=== PATIENT | female | born 1990 | race Caucasian/White ===

== ENCOUNTER 2017-01-13 16:54 | Inpatient (IN) | payer BC ==
[2017-01-13] MEDS ORDERED: Methylergonovine 0.2 MG/1 ML Amp IM PRN (17:16)
[2017-01-13] MEDS ORDERED: Lidocaine 1% 50 ML MDV INJECT PRN (17:16)
[2017-01-13] MEDS ORDERED: Water For Irrigation,Sterile 1,000 ML Container IRR PRN (17:16)
[2017-01-13] MEDS ORDERED: Sodium Chloride 0.9% 2.5 ML Syringe FLUSH PRN (17:16)
[2017-01-13] MEDS ORDERED: Nalbuphine 10 MG/1 ML Vial IVPUSH PRN (17:16)
[2017-01-13] MEDS ORDERED: Carboprost Tromethamine 250 MCG/1 ML Amp IM PRN (17:16)
[2017-01-13] MEDS ORDERED: Misoprostol 200 MCG Tab PO PRN (17:16)
[2017-01-13] MEDS ORDERED: Terbutaline 1 MG/ML SDV SUBCUT PRN (17:21)
[2017-01-13] MEDS ORDERED: Oxytocin/Lactated Ringers 30 UNIT/500 ML BAG IV SCH (17:30)
[2017-01-13] MEDS: Lactated Ringers 1,000 ML IV SCH ×2 (17:45→21:25)
[2017-01-13] MEDS ORDERED: Misoprostol 25 MCG (1/4 of 100 MCG) Tab VAG SCH (18:00)
[2017-01-13] MEDS: Butorphanol 1 MG/ML SDV IVPUSH PRN (22:07)
[2017-01-13] MEDS: Sodium Chloride 0.9% 10 ML Syringe FLUSH PRN (22:10)
[2017-01-14] MEDS ORDERED: Misoprostol 25 MCG (1/4 of 100 MCG) Tab VAG PRN
[2017-01-14] MEDS: Butorphanol 1 MG/ML SDV IVPUSH PRN ×2 (00:06→01:24)
[2017-01-14] MEDS: Sodium Chloride 0.9% 10 ML Syringe FLUSH PRN ×2 (00:08→01:26)
[2017-01-14] MEDS: Lactated Ringers 1,000 ML IV SCH ×2 (01:51→02:46)
--- NOTE | 2017-01-14 01:59 | PCM.PREANE ---
Preanesthetic Assessment - Anesthesia/Transfusion/Family Hx Anesthesia History: Prior Anesthesia Without Reaction Transfusion History: No Prior Transfusion(s) - Review of Systems General: No Symptoms Pulmonary: No Symptoms Cardiovascular: No Symptoms Gastrointestinal: No Symptoms Neurological: No Symptoms Other: Reports: None - Physical Assessment Height: 5 ft 5 in Weight: 72.575 kg ASA Class: 2 Mental Status: Alert & Oriented x3 Airway Class: Mallampati = 2 Dentition: Reports: Normal Dentition Thyro-Mental Finger Breadths: 3 Mouth Opening Finger Breadths: 3 ROM/Head Extension: Full Lungs: Clear to Auscultation, Normal Respiratory Effort Cardiovascular: Regular Rate, Regular Rhythm - Lab Values: Laboratory Last Values WBC 13.37 K/uL (4.0-11.0) H 01/13/17 17:41 RBC 3.86 M/uL (4.30-5.90) L 01/13/17 17:41 Hgb 12.4 g/dL (12.0-16.0) 01/13/17 17:41 Hct 36.4 % (36.0-46.0) 01/13/17 17:41 MCV 94.3 fL (80.0-98.0) 01/13/17 17:41 MCH 32.1 pg (27.0-32.0) H 01/13/17 17:41 MCHC 34.1 g/dL (31.0-37.0) 01/13/17 17:41 RDW Std Deviation 48.8 fl (28.0-62.0) 01/13/17 17:41 RDW Coeff of Kellee 14 % (11.0-15.0) 01/13/17 17:41 Plt Count 193 K/uL (150-400) 01/13/17 17:41 MPV 11.00 fL (7.40-12.00) 01/13/17 17:41 Nucleated RBC % 0.0 /100WBC 01/13/17 17:41 Nucleated RBCs # 0 K/uL 01/13/17 17:41 Blood Type O POSITIVE 01/13/17 17:41 Antibody Screen NEGATIVE 01/13/17 17:41 - Allergies Allergies/Adverse Reactions: Allergies Allergy/AdvReac Type Severity Reaction Status Date / Time No Known Allergies Allergy Verified 03/07/15 11:55 - Acknowledgements Anesthesia Type Planned: Epidural Pt an Appropriate Candidate for the Planned Anesthesia: Yes Alternatives and Risks of Anesthesia Discussed w Pt/Guardian: Yes Pt/Guardian Understands and Agrees with Anesthesia Plan: Yes PreAnesthesia Questionnaire HEENT History: Reports: None Cardiovascular History: Reports: None Respiratory History: Reports: None Gastrointestinal History: Reports: GERD Genitourinary History: Reports: None [employer]MENT [employer] History: Reports: : 1 Para: 0 LMP (Approximate): Musculoskeletal History: Reports: None Neurological History: Reports: None Psychiatric History: Reports: Anxiety Endocrine/Metabolic History: Reports: None Hematologic History: Reports: None Immunologic History: Reports: None Oncologic (Cancer) History: Reports: None Dermatologic History: Reports: None - Infectious Disease History Infectious Disease History: Reports: None - Past Surgical History HEENT Surgical History: Reports: Other (See Below) Other HEENT Surgeries/Procedures: rods in jaw bilateral, removal on left side. - SUBSTANCE USE Smoking Status *Q: Never Smoker Tobacco Use Within Last Twelve Months: No Second Hand Smoke Exposure: No Recreational Drug Use History: No - HOME MEDS Home Medications: Home Meds ALPRAZolam [Xanax] 0.5 mg PO 03/07/15 [History] - CURRENT (IN HOUSE) MEDS Current Meds: Current Medications Butorphanol Tartrate (Stadol) 1 mg IVPUSH Q1H PRN PRN Reason: Pain Last Admin: 01/14/17 01:24 Dose: 1 mg Carboprost Tromethamine (Hemabate Ds) 250 mcg IM ASDIRECTED PRN PRN Reason: Post Hemorrhage Lactated Ringer's (Ringers, Lactated) 1,000 mls @ 150 mls/hr IV ASDIRECTED LAZARO Last Admin: 01/14/17 01:51 Dose: 150 mls/hr Oxytocin/Lactated Ringer's (Pitocin In Lr 30 Units/500 Ml) 30 unit in 500 mls @ 2 mls/hr IV TITRATE LAZARO; 2 MUNITS/MIN PRN Reason: Protocol Lidocaine HCl (Xylocaine 1%) 50 ml INJECT .ONCE PRN PRN Reason: Laceration repair Methylergonovine Maleate (Methergine) 0.2 mg IM ASDIRECTED PRN PRN Reason: Post Hemorrhage Misoprostol (Cytotec) 200 mcg PO .ONCE PRN PRN Reason: Post Hemorrhage Misoprostol (Cytotec) 25 mcg VAG .ONCE LAZARO Last Admin: 01/13/17 18:00 Dose: 25 mcg Misoprostol (Cytotec) 25 mcg VAG Q6H PRN PRN Reason: Cervical Ripening Stop: 01/15/17 18:01 Sodium Chloride (Saline Flush) 10 ml FLUSH ASDIRECTED PRN PRN Reason: Keep Vein Open Last Admin: 01/14/17 01:26 Dose: 10 ml Sodium Chloride (Saline Flush) 2.5 ml FLUSH ASDIRECTED PRN PRN Reason: Keep Vein Open Sterile Water (Sterile Water For Irrigation) 1,000 ml IRR ASDIRECTED PRN PRN Reason: delivery Terbutaline Sulfate (Brethine) 0.25 mg SUBCUT ASDIRECTED PRN PRN Reason: Tacysystole Discontinued Medications Oxytocin/Lactated Ringer's (Pitocin In Lr 30 Units/500 Ml) 30 unit in 500 mls @ 250 mls/hr IV TITRATE LAZARO PRN Reason: 250 MUNITS/MIN Stop: 01/13/17 19:29 Nalbuphine HCl (Nubain) 10 mg IVPUSH Q1H PRN PRN Reason: Pain (severe 7-10) Stop: 01/13/17 19:17
[2017-01-14] MEDS ORDERED: Ropivacaine HCl/PF 100 ML ONE (02:04)
[2017-01-14] MEDS ORDERED: fentaNYL 100 MCG/2 ML SDV ONE (02:04)
[2017-01-14] MEDS ORDERED: Oxytocin/Lactated Ringers 30 UNIT/500 ML BAG IV SCH (06:00)
[2017-01-14] MEDS ORDERED: Witch Hazel Medicated Pads 40/Jar TOP PRN (09:26)
[2017-01-14] MEDS ORDERED: Methylergonovine 0.2 MG/1 ML Amp IM PRN (09:26)
[2017-01-14] MEDS ORDERED: Docusate Sodium 100 MG Cap PO PRN (09:26)
[2017-01-14] MEDS ORDERED: Benzocaine/Menthol 20%-0.5% Spray 78 GM Cannister TOP PRN (09:26)
[2017-01-14] MEDS ORDERED: Bisacodyl 10 MG Supp RECTAL PRN (09:26)
[2017-01-14] MEDS ORDERED: Acetaminophen 500 MG Tab PO PRN (09:26)
[2017-01-14] MEDS ORDERED: oxyCODONE 5 MG Tab PO PRN (09:26)
[2017-01-14] MEDS ORDERED: Lanolin 100% Cream 7 GM Tube TOP PRN (09:26)
--- NOTE | 2017-01-14 10:56 | OR ---
SURGEON: Natasha Harp M.D. DATE OF PROCEDURE: 01/14/2017 PREOPERATIVE DIAGNOSES: 1. A 40 and 1/7th week intrauterine . 2. Gestational hypertension. POSTOPERATIVE DIAGNOSES: 1. A 40 and 1/7th week intrauterine . 2. Gestational hypertension. PROCEDURES: Cytotec and Pitocin induction of labor, term spontaneous vaginal delivery with repair of second-degree perineal laceration and reapproximation of bilateral labial lacerations. ANESTHESIA: Epidural. ESTIMATED BLOOD LOSS: Less than 300 mL. FINDINGS: Live born male, score 8 and 9. Weight is pending at the time of dictation. Placenta was delivered spontaneously, Schultze intact with 3 vessels. Upon inspection of the pelvis and perineum, there was a second-degree perineal laceration, bilateral labial lacerations which were hemostatic, but required reapproximation. COMPLICATIONS: None known. DISPOSITION: Stable in LDRP. BRIEF HISTORY: This is a 26-year-old female. She is G1, P0. She presented at 40 weeks gestation with intermittently elevated blood pressures in the clinic and negative evaluation for preeclampsia. She presents for induction of labor. She received 2 doses of Cytotec. She had spontaneous rupture of membranes. She progressed to complete. She had category 1 heart tones throughout labor. DESCRIPTION OF PROCEDURE: With the patient in dorsal lithotomy position, the patient pushed over 45-minute time period to a 5+ station, at which time the head was delivered spontaneously and atraumatically over the perineum with support with subsequent delivery of the infant's shoulders and body without any difficulty. The was bulb suctioned by nose and mouth. The cord was clamped x2 and cut after it had ceased to pulsate, and the infant was handed to the mother in the presence of the nurse attending delivery. The was a liveborn male, score 8 and 9. Weight is pending at the time of dictation. Pitocin was initiated after delivery of the to assist with delivery of the placenta, which was delivered spontaneously, Schultze intact with 3 vessels. Upon inspection of the pelvis and perineum, there were no periurethral, vaginal sidewall, cervical, or rectal lacerations. There was a small second-degree perineal laceration that was repaired with a running lock suture of 2-0 Caprosyn for the vaginal mucosa deep running suture of the same for the deep perineal tissue and a subcuticular suture of the same for the skin. A single interrupted suture was placed in bilateral labia to reapproximate them for cosmesis, but they were both hemostatic. EBL was less than 300 mL. There were no known complications. Mother and are in LDRP in good condition. DIANA SANCHES /[id number]
[2017-01-14] MEDS: Ibuprofen 800 MG Tab PO PRN ×2 (14:47→19:36)
[2017-01-15] MEDS: Ibuprofen 800 MG Tab PO PRN (08:14)
--- NOTE | 2017-01-15 08:38 | PCM.PNPP ---
<Jessica Flanagan - Last Filed: 01/15/17 08:34> - General Info Date of Service: 01/15/17 Functional Status: Reports: Pain Controlled, Tolerating Diet, Ambulating, Urinating - Review of Systems General: Denies: Fever, Weakness, Fatigue Pulmonary: Denies: Shortness of Breath, Pleuritic Chest Pain, Cough Cardiovascular: Denies: Chest Pain, Palpitations, Dyspnea on Exertion Gastrointestinal: Denies: Abdominal Pain Genitourinary: Denies: Dysuria Psychiatric: Reports: No Symptoms - General Info Date of Service: 01/15/17 - Patient Data Vital Signs - Most Recent: Last Vital Signs Temp 37.0 C 01/14/17 19:46 Pulse 71 01/14/17 19:46 Resp 16 01/14/17 19:46 BP 131/82 01/14/17 19:46 Pulse Ox 98 01/14/17 19:46 Weight - Most Recent: 72.575 kg Lab Results - Last 24 Hours: Laboratory Results - last 24 hr 01/15/17 Range/Units 04:56 Hgb 10.6 L (12.0-16.0) g/dL Hct 32.2 L (36.0-46.0) % Med Orders - Current: Current Medications Acetaminophen (Tylenol Extra Strength) 1,000 mg PO Q4H PRN PRN Reason: Pain Benzocaine/Menthol (Dermoplast Pain Relief 20%-0.5% [place]) 78 gm TOP ASDIRECTED PRN PRN Reason: Perineal Comfort Measure Last Admin: 01/14/17 14:49 Dose: 1 can Bisacodyl (Dulcolax) 10 mg RECTAL .ONCE PRN PRN Reason: Constipation Docusate Sodium (Colace) 100 mg PO BID PRN PRN Reason: Constipation Last Admin: 01/14/17 19:35 Dose: 100 mg Emollient Ointment (Lansinoh Hpa) 0 gm TOP ASDIRECTED PRN PRN Reason: Sore Nipples Last Admin: 01/14/17 14:49 Dose: 1 tube Ibuprofen (Motrin) 800 mg PO Q6H PRN PRN Reason: Pain Last Admin: 01/15/17 08:14 Dose: 800 mg Methylergonovine Maleate (Methergine) 0.2 mg IM .ONCE PRN PRN Reason: Excessive Vaginal Bleeding Oxycodone HCl (Oxycodone) 5 mg PO Q2H PRN PRN Reason: Pain Witch Floridalma (Tucks) 1 pad TOP ASDIRECTED PRN PRN Reason: comfort care Last Admin: 01/14/17 14:49 Dose: 1 tub Discontinued Medications Butorphanol Tartrate (Stadol) 1 mg IVPUSH Q1H PRN PRN Reason: Pain Last Admin: 01/14/17 01:24 Dose: 1 mg Carboprost Tromethamine (Hemabate Ds) 250 mcg IM ASDIRECTED PRN PRN Reason: Post Hemorrhage Fentanyl (Sublimaze) Confirm Administered Dose 100 mcg .ROUTE .STK-MED ONE Stop: 01/14/17 02:05 Lactated Ringer's (Ringers, Lactated) 1,000 mls @ 150 mls/hr IV ASDIRECTED LAZARO Last Admin: 01/14/17 02:46 Dose: 150 mls/hr Oxytocin/Lactated Ringer's (Pitocin In Lr 30 Units/500 Ml) 30 unit in 500 mls @ 250 mls/hr IV TITRATE LAZARO PRN Reason: 250 MUNITS/MIN Stop: 01/13/17 19:29 Oxytocin/Lactated Ringer's (Pitocin In Lr 30 Units/500 Ml) 30 unit in 500 mls @ 2 mls/hr IV TITRATE LAZARO; 2 MUNITS/MIN PRN Reason: Protocol Last Admin: 01/14/17 08:30 Dose: 2 munits/min, 2 mls/hr Ropivacaine (Naropin 0.2%) Confirm Administered Dose 100 mls @ as directed .ROUTE .TOK.tv-MED ONE Stop: 01/14/17 02:05 Lidocaine HCl (Xylocaine 1%) 50 ml INJECT .ONCE PRN PRN Reason: Laceration repair Methylergonovine Maleate (Methergine) 0.2 mg IM ASDIRECTED PRN PRN Reason: Post Hemorrhage Misoprostol (Cytotec) 200 mcg PO .ONCE PRN PRN Reason: Post Hemorrhage Misoprostol (Cytotec) 25 mcg VAG .ONCE LAZARO Last Admin: 01/13/17 18:00 Dose: 25 mcg Misoprostol (Cytotec) 25 mcg VAG Q6H PRN PRN Reason: Cervical Ripening Stop: 08/10/17 18:01 Nalbuphine HCl (Nubain) 10 mg IVPUSH Q1H PRN PRN Reason: Pain (severe 7-10) Stop: 01/13/17 19:17 Sodium Chloride (Saline Flush) 10 ml FLUSH ASDIRECTED PRN PRN Reason: Keep Vein Open Last Admin: 01/14/17 01:26 Dose: 10 ml Sodium Chloride (Saline Flush) 2.5 ml FLUSH ASDIRECTED PRN PRN Reason: Keep Vein Open Sterile Water (Sterile Water For Irrigation) 1,000 ml IRR ASDIRECTED PRN PRN Reason: delivery Terbutaline Sulfate (Brethine) 0.25 mg SUBCUT ASDIRECTED PRN PRN Reason: Tacysystole - Infant Interaction Disposition, : in Room with Family Infant Interaction: Holding Infant Infant Feeding: Attempted ; Nursed Fair/Poor Support Person: - Recovery Exam Fundal Tone: Firm Fundal Level: 2 Fingerbreadths Below Umbilicus Fundal Placement: Midline Lochia Amount: Scant Lochia Color: Rubra/Red Episiotomy/Laceration: Approximated Bladder Status: Voiding Urinary Elimination: Voided - Exam General: Alert, Oriented Neck: Supple Lungs: Clear to Auscultation, Normal Respiratory Effort Cardiovascular: Regular Rate, Regular Rhythm GI/Abdominal Exam: Normal Bowel Sounds, Soft, Non-Tender Psy/Mental Status: Alert, Normal Affect, Normal Mood - Problem List & Annotations (1) Vaginal delivery SNOMED Code(s): 544268804 Code(s): O80 - ENCOUNTER FOR FULL-TERM UNCOMPLICATED DELIVERY Status: Acute Current Visit: Yes - Problem List Review Problem List Initiated/Reviewed/Updated: Yes - Assessment Assessment:: PPD #1 from . Vital signs are stable. Minimal pain and lochia. Discharge home today. - Plan Plan:: Discharge home today. Nothing in the vagina for 6 weeks. Continue PNV while breast feeding. Can use OTC ibuprofen/tylenol as needed for pain. Instructed patient to call if she develops fever greater than 101 or bleeding through a large pad an hour. F/U with [facility] in 6 weeks. <Natasha Harp - Last Filed: 01/15/17 12:57> - Patient Data Vital Signs - Most Recent: Last Vital Signs Temp 36.6 C 01/15/17 08:30 Pulse 76 01/15/17 08:30 Resp 16 01/15/17 08:30 BP 116/70 01/15/17 08:30 Pulse Ox 96 01/15/17 08:30 Lab Results - Last 24 Hours: Laboratory Results - last 24 hr 01/15/17 Range/Units 04:56 Hgb 10.6 L (12.0-16.0) g/dL Hct 32.2 L (36.0-46.0) % Med Orders - Current: Current Medications Acetaminophen (Tylenol Extra Strength) 1,000 mg PO Q4H PRN PRN Reason: Pain Benzocaine/Menthol (Dermoplast Pain Relief 20%-0.5% [place]) 78 gm TOP ASDIRECTED PRN PRN Reason: Perineal Comfort Measure Last Admin: 01/14/17 14:49 Dose: 1 can Bisacodyl (Dulcolax) 10 mg RECTAL .ONCE PRN PRN Reason: Constipation Docusate Sodium (Colace) 100 mg PO BID PRN PRN Reason: Constipation Last Admin: 01/14/17 19:35 Dose: 100 mg Emollient Ointment (Lansinoh Hpa) 0 gm TOP ASDIRECTED PRN PRN Reason: Sore Nipples Last Admin: 01/14/17 14:49 Dose: 1 tube Ibuprofen (Motrin) 800 mg PO Q6H PRN PRN Reason: Pain Last Admin: 01/15/17 08:14 Dose: 800 mg Methylergonovine Maleate (Methergine) 0.2 mg IM .ONCE PRN PRN Reason: Excessive Vaginal Bleeding Oxycodone HCl (Oxycodone) 5 mg PO Q2H PRN PRN Reason: Pain Witch Floridalma (Tucks) 1 pad TOP ASDIRECTED PRN PRN Reason: comfort care Last Admin: 01/14/17 14:49 Dose: 1 tub Discontinued Medications Butorphanol Tartrate (Stadol) 1 mg IVPUSH Q1H PRN PRN Reason: Pain Last Admin: 01/14/17 01:24 Dose: 1 mg Carboprost Tromethamine (Hemabate Ds) 250 mcg IM ASDIRECTED PRN PRN Reason: Post Hemorrhage Fentanyl (Sublimaze) Confirm Administered Dose 100 mcg .ROUTE .STK-MED ONE Stop: 01/14/17 02:05 Lactated Ringer's (Ringers, Lactated) 1,000 mls @ 150 mls/hr IV ASDIRECTED LAZARO Last Admin: 01/14/17 02:46 Dose: 150 mls/hr Oxytocin/Lactated Ringer's (Pitocin In Lr 30 Units/500 Ml) 30 unit in 500 mls @ 250 mls/hr IV TITRATE LAZARO PRN Reason: 250 MUNITS/MIN Stop: 01/13/17 19:29 Oxytocin/Lactated Ringer's (Pitocin In Lr 30 Units/500 Ml) 30 unit in 500 mls @ 2 mls/hr IV TITRATE LAZARO; 2 MUNITS/MIN PRN Reason: Protocol Last Admin: 01/14/17 08:30 Dose: 2 munits/min, 2 mls/hr Ropivacaine (Naropin 0.2%) Confirm Administered Dose 100 mls @ as directed .ROUTE .[facility]-MED ONE Stop: 01/14/17 02:05 Lidocaine HCl (Xylocaine 1%) 50 ml INJECT .ONCE PRN PRN Reason: Laceration repair Methylergonovine Maleate (Methergine) 0.2 mg IM ASDIRECTED PRN PRN Reason: Post Hemorrhage Misoprostol (Cytotec) 200 mcg PO .ONCE PRN PRN Reason: Post Hemorrhage Misoprostol (Cytotec) 25 mcg VAG .ONCE LAZARO Last Admin: 01/13/17 18:00 Dose: 25 mcg Misoprostol (Cytotec) 25 mcg VAG Q6H PRN PRN Reason: Cervical Ripening Stop: 01/15/17 18:01 Nalbuphine HCl (Nubain) 10 mg IVPUSH Q1H PRN PRN Reason: Pain (severe 7-10) Stop: 01/13/17 19:17 Sodium Chloride (Saline Flush) 10 ml FLUSH ASDIRECTED PRN PRN Reason: Keep Vein Open Last Admin: 01/14/17 01:26 Dose: 10 ml Sodium Chloride (Saline Flush) 2.5 ml FLUSH ASDIRECTED PRN PRN Reason: Keep Vein Open Sterile Water (Sterile Water For Irrigation) 1,000 ml IRR ASDIRECTED PRN PRN Reason: delivery Terbutaline Sulfate (Brethine) 0.25 mg SUBCUT ASDIRECTED PRN PRN Reason: Tacysystole - Problem List Review Problem List Initiated/Reviewed/Updated: Yes - Plan Plan:: Patient was seen and examined and I agree with above.
[2017-01-15 09:19] VITALS: BP 116/70
== END 2017-01-15 13:15 | disposition home or self-care (01) | DRG 560 ==
LOC: MW.OBCHECK 16:54 → MW.OB 17:11 → MW.OBCHECK 01-14 08:56 → MW.OB 01-14 08:56 → OBSVTOIN 01-14 09:06 → MW.OB 01-14 15:03
PROVIDERS: ADMIT Obstetrics & Gynecology; ATTEND Obstetrics & Gynecology
PROC: 10E0XZZ Delivery of Products of Conception, External Approach (ICD-10-PCS; principal; 2017-01-14)
PROC: 3E0P7GC Introduction of Other Therapeutic Substance into Female Reproductive, Via Natural or Artificial Opening (ICD-10-PCS; 2017-01-14)
PROC: 0KQM0ZZ Repair Perineum Muscle, Open Approach (ICD-10-PCS; 2017-01-14)
DX: O13.4 Gestational [pregnancy-induced] hypertension without significant proteinuria, complicating childbirth (principal); O70.1 Second degree perineal laceration during delivery; Z3A.39 39 weeks gestation of pregnancy; Z37.0 Single live birth
CPT/HCPCS: 01967; 36415; 59025; 85014; 85018; 85027; 86850; 86900; 86901; A9270-GY; J0595; J2795; J3010; J7120

== ENCOUNTER 2017-11-30 08:50 | Emergency (ER) | payer BC ==
--- NOTE | 2017-11-30 09:15 | EDM.PDOC ---
ED HPI GENERAL MEDICAL PROBLEM - General Chief Complaint: Head Injury Stated Complaint: HEAD INJURY Time Seen by Provider: 11/30/17 09:01 Source of Information: Reports: Patient History Limitations: Reports: No Limitations - History of Present Illness INITIAL COMMENTS - FREE TEXT/NARRATIVE: History of present illness: []Patient was sitting on her deck yesterday and fell and hit her head on a railroad tie. Patient thinks she had a loss of consciousness but does not remember clearly the events prior. She denies using any drugs or alcohol state she is currently breast-feeding. Patient has been vomiting all night and awoke with headache and light sensitivity. She does not have a history of migraines. Review of systems: As per history of present illness and below otherwise all systems reviewed and negative. Past medical history: As per history of present illness and as reviewed below otherwise noncontributory. Surgical history: As per history of present illness and as reviewed below otherwise noncontributory. Social history: No reported history of drug or alcohol abuse. Family history: As per history of present illness and as reviewed below otherwise noncontributory. Physical exam: General: Well developed, well nourished in NAD HEENT: Atraumatic, normocephalic, pupils reactive, negative for conjunctival pallor or scleral icterus, mucous membranes moist, throat clear, neck supple, nontender, trachea midline. No hemotympanum, Lungs: Clear to auscultation, breath sounds equal bilaterally, chest nontender. Heart: S1S2, regular, negative for clicks, rubs, or JVD. Abdomen: Soft, nondistended, nontender. Negative for masses or hepatosplenomegaly. Negative for costovertebral tenderness. Pelvis: Stable nontender. Genitourinary: Deferred. Rectal: Deferred. Extremities: Atraumatic, negative for cords or calf pain. Neurovascular unremarkable. Neuro: Awake, alert, oriented. Cranial nerves II through XII unremarkable. Cerebellum unremarkable. Motor and sensory unremarkable throughout. Exam nonfocal. Diagnostics: []CT head negative for fracture or bleed Therapeutics: []Zofran for nausea Impression: []Post traumatic concussion Plan: []Follow-up with primary care return if symptoms worsen or change Definitive disposition and diagnosis as appropriate pending reevaluation and review of above. Back of head Pain Score (Numeric/FACES): 8 - Related Data Allergies Allergy/AdvReac Type Severity Reaction Status Date / Time No Known Allergies Allergy Verified 11/30/17 09:03 Home Meds: Home Meds . [No Known Home Meds] 11/30/17 [History] Past Medical History HEENT History: Reports: None Cardiovascular History: Reports: None Respiratory History: Reports: None Gastrointestinal History: Reports: GERD Genitourinary History: Reports: None YARN PACKER History: Reports: Musculoskeletal History: Reports: None Neurological History: Reports: None Psychiatric History: Reports: Anxiety Endocrine/Metabolic History: Reports: None Hematologic History: Reports: None Immunologic History: Reports: None Oncologic (Cancer) History: Reports: None Dermatologic History: Reports: None - Infectious Disease History Infectious Disease History: Reports: None - Past Surgical History HEENT Surgical History: Reports: Other (See Below) Other HEENT Surgeries/Procedures: rods in jaw bilateral, removal on left side. Social & Family History - Family History Family Medical History: Noncontributory - Caffeine Use Caffeine Use: Reports: None ED ROS GENERAL - Review of Systems Review Of Systems: See Below (See history of present illness) ED EXAM, HEAD INJURY - Physical Exam Exam: See Below (See history of present illness) Course - Vital Signs Last Recorded V/S: Last Vital Signs Temp 97.8 F 11/30/17 09:04 Pulse 64 11/30/17 09:04 Resp 18 11/30/17 09:04 BP 140/85 11/30/17 09:04 Pulse Ox 99 11/30/17 09:04 - Orders/Labs/Meds Meds: Medications Discontinued Medications Generic Name Dose Route Start Last Admin Trade Name Tre PRN Reason Stop Dose Admin Ondansetron HCl 4 mg 11/30/17 09:16 11/30/17 09:21 Zofran Odt PO 11/30/17 09:17 4 mg ONETIME ONE Administration Departure - Departure Time of Disposition: 10:16 Disposition: Home, Self-Care 01 Condition: Good Clinical Impression: Concussion Qualifiers: Encounter type: initial encounter Loss of consciousness presence/duration: with LOC of 30 min or less Qualified Code(s): S06.0X1A - Concussion with loss of consciousness of 30 minutes or less, initial encounter - Discharge Information Referrals: PCP,None [Primary Care Provider] - Forms: ED Department Discharge Additional Instructions: The following information is given to patients seen in the emergency department who are being discharged to home. This information is to outline your options for follow-up care. We provide all patients seen in our emergency department with a follow-up referral. The need for follow-up, as well as the timing and circumstances, are variable depending upon the specifics of your emergency department visit. If you don't have a primary care physician on staff, we will provide you with a referral. We always advise you to contact your personal physician following an emergency department visit to inform them of the circumstance of the visit and for follow-up with them and/or the need for any referrals to a consulting specialist. The emergency department will also refer you to a specialist when appropriate. This referral assures that you have the opportunity for follow-up care with a specialist. All of these measure are taken in an effort to provide you with optimal care, which includes your follow-up. Under all circumstances we always encourage you to contact your private physician who remains a resource for coordinating your care. When calling for follow-up care, please make the office aware that this follow-up is from your recent emergency room visit. If for any reason you are refused follow-up, please contact the [facility] Emergency Department at and asked to speak to the emergency department charge nurse. [facility] Primary Care [address] [place] [id number]
[2017-11-30] MEDS ORDERED: Ondansetron 4 MG Tab.DIS PO ONE (09:16)
--- NOTE | 2017-11-30 10:03 | CT ---
EXAMINATION: Non contrast CT head. Coronal and sagittal reformats. HISTORY: Pain FINDINGS: No evidence of intra or extra axial hemorrhage, mass, midline shift, hydrocephalus or edema. No hypoattenuation changes in the major vascular territories to suggest acute infarct. No abnormal intracranial calcifications are detected. No evidence of substantial vascular calcificat ions. Paranasal sinuses and mastoid air cells are well aerated without substantial findings. Orbits and gl obes are symmetric. Pituitary fossa appears unremarkable. Calvarium is intact. No evidence of skull fracture. IMPRESSION: No acute intracranial findings.
[2017-11-30 10:50] VITALS: BP 125/81
== END 2017-11-30 10:39 | disposition home or self-care (01) ==
LOC: MW.ED 08:50
DX: S06.0X1A Concussion with loss of consciousness of 30 minutes or less, initial encounter (principal); W01.198A Fall on same level from slipping, tripping and stumbling with subsequent striking against other object, initial encounter
CPT/HCPCS: 70450; 99284; A9270

== ENCOUNTER 2017-12-16 20:33 | Emergency (ER) | payer BC ==
[2017-12-16] MEDS ORDERED: Acetaminophen/HYDROcodone 325-5 MG Tab PO ONE (20:49)
--- NOTE | 2017-12-16 20:52 | EDM.PDOC ---
ED HPI GENERAL MEDICAL PROBLEM - General Chief Complaint: COMPUTER CONSULTANT Problem Stated Complaint: CRAMPING, POSSIBLE MISCARRIAGE- 1ST TRIMESTER Time Seen by Provider: 12/16/17 20:38 Source of Information: Reports: Patient History Limitations: Reports: No Limitations - History of Present Illness INITIAL COMMENTS - FREE TEXT/NARRATIVE: HISTORY AND PHYSICAL: History of present illness: Patient is a 27-year-old female who presents to the emergency room with complaints of vaginal bleeding, cramping while . She states that this morning she had gone to her primary care provider as she had some light vaginal bleeding and abdominal cramping. During that time they had done a test but she had not yet learned the results. Her bleeding became more heavy and cramping increased. She states she called the [facility] "after-hours line" and was told that her test was positive. She is unsure of her last menstrual period as she has an that she has been breast-feeding. Currently on no form of control and is no longer breast feeding. States she is going through a tampon every 30 minutes before needing to be changed. 2, para 1 Review of systems: As per history of present illness and below otherwise all systems reviewed and negative. Past medical history: As per history of present illness and as reviewed below otherwise noncontributory. Surgical history: As per history of present illness and as reviewed below otherwise noncontributory. Social history: No reported history of drug or alcohol abuse. Family history: As per history of present illness and as reviewed below otherwise noncontributory. Physical exam: General: Well-developed and well-nourished 27-year-old female. Alert and oriented. Nontoxic appearing and in no acute distress. HEENT: Atraumatic, normocephalic, pupils equal and reactive bilaterally, negative for conjunctival pallor or scleral icterus, mucous membranes moist, throat clear, neck supple, nontender, trachea midline. No drooling or trismus noted. No meningeal signs Lungs: Clear to auscultation, breath sounds equal bilaterally, chest nontender. Heart: S1S2, regular rate and rhythm without overt murmur Abdomen: Soft, nondistended, nontender. Negative for masses or hepatosplenomegaly. Negative for costovertebral tenderness. Pelvis: Stable nontender. Genitourinary: This was done with a chaparone at the beside and with consent. Exam was explained prior to completing. Normal-appearing external genitalia. She does have active bleeding. Cervical os is closed. Tolerated fair. Rectal: Deferred. Skin: Intact, warm, dry. No lesions or rashes noted. Extremities: Atraumatic, negative for cords or calf pain. Neurovascular unremarkable. Neuro: Awake, alert, oriented. Cranial nerves II through XII unremarkable. Cerebellum unremarkable. Motor and sensory unremarkable throughout. Exam nonfocal. Notes: Patient's notes show she is O+. Patient states she has a lot of abdominal cramping and is requesting something for pain. She is no longer breast feeding. I will give her one tablet of [place] while she is here and waiting for ultrasound to arrive. Todays' Quant is 5241. Patient will repeat this on 12/18/2017. Her chest instructions were reviewed. She needs to follow up with her primary care, preferably COMPUTER CONSULTANT tomorrow or Thursday. Patient is aware and voices understanding. Denies any further questions or concerns at this time. Diagnostics: CBC, CMP, quantitative hCG, UA, OB ultrasound first trimester Therapeutics: [place] 5/325mg Impression: Threatened Miscarriage Plan: 1. Pelvic rest until cleared by your OBGYN 2. Tylenol and/or ibuprofen as needed for pain management. 3. Please have your quantitative hCG redrawn on 12/18/2017 4. Follow-up with your COMPUTER CONSULTANT as we discussed. Return to the ED as needed and as discussed. Definitive disposition and diagnosis as appropriate pending reevaluation and review of above. Onset: Today Duration: Day(s): Location: Reports: Abdomen abdomen Pain Score (Numeric/FACES): 10 - Related Data Allergies Allergy/AdvReac Type Severity Reaction Status Date / Time No Known Allergies Allergy Verified 12/16/17 21:36 Home Meds: Home Meds . [No Known Home Meds] 11/30/17 [History] Past Medical History HEENT History: Reports: None Cardiovascular History: Reports: None Respiratory History: Reports: None Gastrointestinal History: Reports: GERD Genitourinary History: Reports: None COMPUTER CONSULTANT History: Reports: Musculoskeletal History: Reports: None Neurological History: Reports: None Psychiatric History: Reports: Anxiety Endocrine/Metabolic History: Reports: None Hematologic History: Reports: None Immunologic History: Reports: None Oncologic (Cancer) History: Reports: None Dermatologic History: Reports: None - Infectious Disease History Infectious Disease History: Reports: None - Past Surgical History HEENT Surgical History: Reports: Other (See Below) Other HEENT Surgeries/Procedures: rods in jaw bilateral, removal on left side. Social & Family History - Family History Family Medical History: Noncontributory - Caffeine Use Caffeine Use: Reports: None ED ROS GENERAL - Review of Systems Review Of Systems: ROS reveals no pertinent complaints other than HPI. ED EXAM, RENAL/ - Physical Exam Exam: See Below (See dictation) Course - Vital Signs Last Recorded V/S: Last Vital Signs Temp 98.8 F 12/16/17 20:33 Pulse 72 12/16/17 20:33 Resp 18 12/16/17 20:33 BP 130/84 12/16/17 20:33 Pulse Ox 99 12/16/17 20:33 - Orders/Labs/Meds Labs: Laboratory Tests 12/16/17 12/16/17 12/16/17 Range/Units 20:47 20:47 20:49 WBC 12.15 H (4.0-11.0) K/uL RBC 3.82 L (4.30-5.90) M/uL Hgb 12.1 (12.0-16.0) g/dL Hct 34.6 L (36.0-46.0) % MCV 90.6 (80.0-98.0) fL MCH 31.7 (27.0-32.0) pg MCHC 35.0 (31.0-37.0) g/dL RDW Std Deviation 40.5 (28.0-62.0) fl RDW Coeff of Kellee 12 (11.0-15.0) % Plt Count 247 (150-400) K/uL MPV 9.30 (7.40-12.00) fL Neut % (Auto) 74.9 (48.0-80.0) % Lymph % (Auto) 17.6 (16.0-40.0) % Mcmullen % (Auto) 6.8 (0.0-15.0) % Eos % (Auto) 0.5 (0.0-7.0) % Baso % (Auto) 0.2 (0.0-1.5) % Neut # (Auto) 9.1 H (1.4-5.7) K/uL Lymph # (Auto) 2.1 (0.6-2.4) K/uL Mcmullen # (Auto) 0.8 (0.0-0.8) K/uL Eos # (Auto) 0.1 (0.0-0.7) K/uL Baso # (Auto) 0.0 (0.0-0.1) K/uL Nucleated RBC % 0.0 /100WBC Nucleated RBCs # 0 K/uL HCG, Quant 5241.0 mIU/mL Urine Color YELLOW Urine Appearance SLT CLOUDY Urine pH 6.0 (5.0-8.0) Ur Specific Lolo >= 1.030 (1.001-1.035) Urine Protein TRACE (NEGATIVE) mg/dL Urine Glucose (UA) NEGATIVE (NEGATIVE) mg/dL Urine Ketones 15 H (NEGATIVE) mg/dL Urine Occult Blood LARGE H (NEGATIVE) Urine Nitrite NEGATIVE (NEGATIVE) Urine Bilirubin NEGATIVE (NEGATIVE) Urine Urobilinogen 0.2 (<2.0) EU/dL Ur Leukocyte Esterase TRACE (NEGATIVE) Urine RBC 50-120 (0-2/HPF) Urine WBC 1-3 (0-5/HPF) Ur Epithelial Cells OCCASIONAL (NONE-FEW) Urine Bacteria FEW (NEGATIVE) Urine Mucus RARE (NONE-MOD) 12/17/17 Range/Units 12:30 WBC (4.0-11.0) K/uL RBC (4.30-5.90) M/uL Hgb (12.0-16.0) g/dL Hct (36.0-46.0) % MCV (80.0-98.0) fL MCH (27.0-32.0) pg MCHC (31.0-37.0) g/dL RDW Std Deviation (28.0-62.0) fl RDW Coeff of Kellee (11.0-15.0) % Plt Count (150-400) K/uL MPV (7.40-12.00) fL Neut % (Auto) (48.0-80.0) % Lymph % (Auto) (16.0-40.0) % Mcmullen % (Auto) (0.0-15.0) % Eos % (Auto) (0.0-7.0) % Baso % (Auto) (0.0-1.5) % Neut # (Auto) (1.4-5.7) K/uL Lymph # (Auto) (0.6-2.4) K/uL Mcmullen # (Auto) (0.0-0.8) K/uL Eos # (Auto) (0.0-0.7) K/uL Baso # (Auto) (0.0-0.1) K/uL Nucleated RBC % /100WBC Nucleated RBCs # K/uL HCG, Quant Cancelled mIU/mL Urine Color Urine Appearance Urine pH (5.0-8.0) Ur Specific Lolo (1.001-1.035) Urine Protein (NEGATIVE) mg/dL Urine Glucose (UA) (NEGATIVE) mg/dL Urine Ketones (NEGATIVE) mg/dL Urine Occult Blood (NEGATIVE) Urine Nitrite (NEGATIVE) Urine Bilirubin (NEGATIVE) Urine Urobilinogen (<2.0) EU/dL Ur Leukocyte Esterase (NEGATIVE) Urine RBC (0-2/HPF) Urine WBC (0-5/HPF) Ur Epithelial Cells (NONE-FEW) Urine Bacteria (NEGATIVE) Urine Mucus (NONE-MOD) Meds: Medications Discontinued Medications Generic Name Dose Route Start Last Admin Trade Name Freq PRN Reason Stop Dose Admin Hydrocodone Bitart/Acetaminophen 1 tab 12/16/17 20:49 12/16/17 21:02 [place] 325-5 Mg PO 12/16/17 20:50 1 tab ONETIME ONE Administration Departure - Departure Time of Disposition: 21:50 Disposition: Home, Self-Care 01 Clinical Impression: Threatened - Discharge Information Instructions: Threatened Miscarriage, [id number] Referrals: PCP,None [Primary Care Provider] - Forms: ED Department Discharge Additional Instructions: The following information is given to patients seen in the emergency department who are being discharged to home. This information is to outline your options for follow-up care. We provide all patients seen in our emergency department with a follow-up referral. The need for follow-up, as well as the timing and circumstances, are variable depending upon the specifics of your emergency department visit. If you don't have a primary care physician on staff, we will provide you with a referral. We always advise you to contact your personal physician following an emergency department visit to inform them of the circumstance of the visit and for follow-up with them and/or the need for any referrals to a consulting specialist. The emergency department will also refer you to a specialist when appropriate. This referral assures that you have the opportunity for follow-up care with a specialist. All of these measure are taken in an effort to provide you with optimal care, which includes your follow-up. Under all circumstances we always encourage you to contact your private physician who remains a resource for coordinating your care. When calling for follow-up care, please make the office aware that this follow-up is from your recent emergency room visit. If for any reason you are refused follow-up, please contact the [facility] Emergency Department at and asked to speak to the emergency department charge nurse. [facility] [address] [place] [id number] [facility] [address] [place] [id number] 1. Pelvic rest until cleared by your OBGYN 2. Tylenol and/or ibuprofen as needed for pain management. 3. Please have your quantitative hCG redrawn on 12/18/2017 4. Follow-up with your COMPUTER CONSULTANT as we discussed. Return to the ED as needed and as discussed.
[2017-12-16 21:36] VITALS: BP 130/84
--- NOTE | 2017-12-17 15:32 | US ---
EXAM DATE: 12/16/17 PATIENT'S AGE: 27 Patient: ARMANI CLARK Facility: [place], [place] Site . Site : 1990 Study: US OB Pelvis [id number]/11/2018 9:49:30 PM Ordering Physician: Doctor Thibodeaux Final Report: INDICATION: Vaginal bleeding TECHNIQUE: Ultrasound OB pelvis transvaginal. Real time stallworth scale imaging of the pelvis was performed. COMPARISON: None FINDINGS: Present within the endometrial canal is a irregular-shaped possible gestational sac with a mean gestational sac diameter of 1.8 centimeters consistent with a gestational age of 6 weeks 5 days. No evidence of yolk sac, pole or heart tones. he cervix is closed. The myometrium appears normal. Endometrium is thickened The ovaries are of normal size. There are no suspicious fluid collections noted in the cul-de-sac. IMPRESSION: Possible irregular shaped intrauterine gestational sac with a mean gestational sac diameter of 1.8 centimeters consistent with gestational age 6 weeks and 5 days. No evidence for yolk sac, pole or heart tones. Correlate with beta HCG levels. Dictated by Archie Elise MD @ 12/16/2017 10:14:23 PM Dictated by: Archie Elise MD @ 12/16/2017 22:14:42 (Electronic Signature) Report Signed by Proxy. ELMER
== END 2017-12-16 23:05 | disposition home or self-care (01) ==
LOC: MW.ED 20:33
DX: O20.0 Threatened abortion (principal); Z3A.01 Less than 8 weeks gestation of pregnancy
CPT/HCPCS: 36415; 76801; 81001; 84702; 85025; 99284; A9270

== ENCOUNTER 2018-11-24 01:33 | Inpatient (IN) | payer BC ==
[2018-11-24] MEDS ORDERED: Misoprostol 200 MCG Tab PO PRN (01:42)
[2018-11-24] MEDS ORDERED: Tranexamic Acid 1,000 MG in Sodium Chloride 0.9% 100 ML IV PRN ×2 (01:42→06:35)
[2018-11-24] MEDS ORDERED: Carboprost Tromethamine 250 MCG/1 ML Amp IM PRN (01:42)
[2018-11-24] MEDS ORDERED: Sodium Chloride 0.9% 10 ML Syringe FLUSH PRN (01:42)
[2018-11-24] MEDS ORDERED: Methylergonovine 0.2 MG/1 ML Amp IM PRN (01:42)
[2018-11-24] MEDS ORDERED: Ondansetron 4 MG/2 ML SDV IV PRN (01:42)
[2018-11-24] MEDS ORDERED: Butorphanol 1 MG/ML SDV IVPUSH PRN (01:42)
[2018-11-24] MEDS ORDERED: Lidocaine 1% 50 ML MDV INJECT PRN (01:42)
[2018-11-24] MEDS ORDERED: Nalbuphine 10 MG/1 ML Vial IVPUSH PRN (01:42)
[2018-11-24] MEDS ORDERED: Water For Irrigation,Sterile 1,000 ML Container IRR PRN (01:42)
[2018-11-24] MEDS ORDERED: Sodium Chloride 0.9% 2.5 ML Syringe FLUSH PRN (01:42)
[2018-11-24] MEDS ORDERED: Sodium Chloride 0.9% 10 ML SDV IV PRN (01:42)
[2018-11-24] MEDS ORDERED: Oxytocin/0.9 % Sodium Chloride 30 UNIT/500 ML BAG IV SCH (01:45)
[2018-11-24] MEDS: Lactated Ringers 1,000 ML IV SCH ×3 (02:10→04:16)
[2018-11-24] MEDS ORDERED: Ropivacaine HCl/PF 100 ML ONE (02:52)
--- NOTE | 2018-11-24 02:56 | PCM.PREANE ---
Preanesthetic Assessment - Anesthesia/Transfusion/Family Hx Anesthesia History: Prior Anesthesia Without Reaction Transfusion History: No Prior Transfusion(s) - Review of Systems General: No Symptoms Pulmonary: No Symptoms Cardiovascular: No Symptoms Gastrointestinal: No Symptoms Neurological: No Symptoms Other: Reports: None - Physical Assessment NPO Status Date: 11/23/18 NPO Status Time: 20:00 Height: 1.68 m Weight: 68.946 kg ASA Class: 2E Mental Status: Alert & Oriented x3 Airway Class: Mallampati = 2 Dentition: Reports: Normal Dentition Thyro-Mental Finger Breadths: 3 Mouth Opening Finger Breadths: 3 ROM/Head Extension: Full Lungs: Clear to Auscultation, Normal Respiratory Effort Cardiovascular: Regular Rate, Regular Rhythm - Lab Values: Laboratory Last Values WBC 10.00 K/uL (4.0-11.0) 11/24/18 02:00 RBC 3.81 M/uL (4.30-5.90) L 11/24/18 02:00 Hgb 12.0 g/dL (12.0-16.0) 11/24/18 02:00 Hct 35.4 % (36.0-46.0) L 11/24/18 02:00 MCV 92.9 fL (80.0-98.0) 11/24/18 02:00 MCH 31.5 pg (27.0-32.0) 11/24/18 02:00 MCHC 33.9 g/dL (31.0-37.0) 11/24/18 02:00 RDW Std Deviation 44.5 fl (28.0-62.0) 11/24/18 02:00 RDW Coeff of Kellee 14 % (11.0-15.0) 11/24/18 02:00 Plt Count 202 K/uL (150-400) 11/24/18 02:00 MPV 11.00 fL (7.40-12.00) 11/24/18 02:00 Blood Type O POSITIVE 11/24/18 02:00 Antibody Screen NEGATIVE 11/24/18 02:00 - Allergies Allergies/Adverse Reactions: Allergies Allergy/AdvReac Type Severity Reaction Status Date / Time No Known Allergies Allergy Verified 12/16/17 21:36 - Acknowledgements Anesthesia Type Planned: Epidural (risks and benefits discussed with special emphasis on back pain, and headache. patient consented) Pt an Appropriate Candidate for the Planned Anesthesia: Yes Alternatives and Risks of Anesthesia Discussed w Pt/Guardian: Yes Pt/Guardian Understands and Agrees with Anesthesia Plan: Yes PreAnesthesia Questionnaire HEENT History: Reports: None Cardiovascular History: Reports: Other (See Below) (HTN with ) Respiratory History: Reports: None Gastrointestinal History: Reports: GERD Genitourinary History: Reports: None SUBCONTRACT MANAGER History: Reports: , Spontaneous Musculoskeletal History: Reports: None Neurological History: Reports: None Psychiatric History: Reports: Anxiety Endocrine/Metabolic History: Reports: None Hematologic History: Reports: None Immunologic History: Reports: None Oncologic (Cancer) History: Reports: None Dermatologic History: Reports: None - Infectious Disease History Infectious Disease History: Reports: None - Past Surgical History HEENT Surgical History: Reports: Other (See Below) Other HEENT Surgeries/Procedures: rods in jaw bilateral, removal on left side. - SUBSTANCE USE Smoking Status *Q: Never Smoker Tobacco Use Within Last Twelve Months: No Second Hand Smoke Exposure: No Recreational Drug Use History: No - HOME MEDS Home Medications: Home Meds PNV #116/Iron Fumarate/FA/DHA [Expecta Combo Pack] 10/02/18 [History] - CURRENT (IN HOUSE) MEDS Current Meds: Current Medications Butorphanol Tartrate (Stadol) 1 mg IVPUSH Q1H PRN PRN Reason: Pain Last Admin: 11/24/18 02:10 Dose: 1 mg Carboprost Tromethamine (Hemabate Ds) 250 mcg IM ASDIRECTED PRN PRN Reason: Post Hemorrhage Lactated Ringer's (Ringers, Lactated) 1,000 mls @ 150 mls/hr IV ASDIRECTED LAZARO Last Admin: 11/24/18 02:44 Dose: 999 mls/hr Oxytocin/Sodium Chloride (Oxytocin 30 Unit/500 Ml-Ns) 30 unit in 500 mls @ 999 mls/hr IV TITRATE LAZARO Tranexamic Acid 1,000 mg/ (Sodium Chloride) 110 mls @ 660 mls/hr IV ONETIME PRN PRN Reason: Bleeding Lidocaine HCl (Xylocaine 1%) 50 ml INJECT ONETIME PRN PRN Reason: Laceration repair Methylergonovine Maleate (Methergine) 0.2 mg IM ASDIRECTED PRN PRN Reason: Post Hemorrhage Misoprostol (Cytotec) 200 mcg PO ONETIME PRN PRN Reason: Post Hemorrhage Nalbuphine HCl (Nubain) 10 mg IVPUSH Q1H PRN PRN Reason: Pain (severe 7-10) Ondansetron HCl (Zofran) 4 mg IV Q6H PRN PRN Reason: Nausea/Vomiting Sodium Chloride (Saline Flush) 10 ml FLUSH ASDIRECTED PRN PRN Reason: Keep Vein Open Sodium Chloride (Saline Flush) 2.5 ml FLUSH ASDIRECTED PRN PRN Reason: Keep Vein Open Sodium Chloride (Normal Saline) 10 ml IV ASDIRECTED PRN PRN Reason: IV Use Sterile Water (Sterile Water For Irrigation) 1,000 ml IRR ASDIRECTED PRN PRN Reason: delivery Discontinued Medications Ropivacaine (Naropin 0.2%) Confirm Administered Dose 100 mls @ as directed .ROUTE .[employer]-MED ONE Stop: 11/24/18 02:53
[2018-11-24 06:17] LABS: CHLORIDE,CL 100 mmol/L (98-107); SODIUM,NA 132 mmol/L (136-145)
--- NOTE | 2018-11-24 06:34 | PCM.DEL ---
L & D Note - General Info Date of Service: 11/24/18 - Delivery Note Labor: Spontaneous Delivery Outcome: Livebirth Delivery Method: Spontaneous Vaginal Delivery-Single Presentation: Left Occiput Anterior (NANETTE) Nuchal Cord: None Prep: Other Anesthesia Type: Epidural Episiotomy Type: None Laceration: None Placenta: Intact, Spontaneous Cord: 3 Vessels Estimated Blood Loss: 200 Resuscitation Needed: No [place]: Suctioned Score 1 min: 9 Score 5 min: 9 Delivery Comments (Free Text/Narrative):: Liveborn male 9/9 - General Info Date of Service: 11/24/18 - Patient Data Weight - Most Recent: 68.946 kg Lab Results Last 24 Hours: Laboratory Results - last 24 hr 11/24/18 11/24/18 11/24/18 Range/Units 02:00 02:00 02:00 WBC 10.00 (4.0-11.0) K/uL RBC 3.81 L (4.30-5.90) M/uL Hgb 12.0 (12.0-16.0) g/dL Hct 35.4 L (36.0-46.0) % MCV 92.9 (80.0-98.0) fL MCH 31.5 (27.0-32.0) pg MCHC 33.9 (31.0-37.0) g/dL RDW Std Deviation 44.5 (28.0-62.0) fl RDW Coeff of Kellee 14 (11.0-15.0) % Plt Count 202 (150-400) K/uL MPV 11.00 (7.40-12.00) fL Sodium 132 L (136-145) mmol/L Potassium 3.8 (3.5-5.1) mmol/L Chloride 100 (98-107) mmol/L Carbon Dioxide 20.9 L (21.0-32.0) mmol/L BUN 8 (7.0-18.0) mg/dL Creatinine 0.6 (0.6-1.0) mg/dL Est Cr Clr Drug Dosing 130.68 mL/min Estimated GFR (MDRD) > 60.0 ml/min Glucose 88 (74-106) mg/dL Calcium 9.0 (8.5-10.1) mg/dL Total Bilirubin 0.2 (0.2-1.0) mg/dL AST 17 (15-37) IU/L ALT 15 (14-63) IU/L Alkaline Phosphatase 129 H (46-116) U/L Total Protein 6.8 (6.4-8.2) g/dL Albumin 2.9 L (3.4-5.0) g/dL Globulin 3.9 (2.6-4.0) g/dL Albumin/Globulin Ratio 0.7 L (0.9-1.6) Blood Type O POSITIVE Antibody Screen NEGATIVE Med Orders - Current: Current Medications Butorphanol Tartrate (Stadol) 1 mg IVPUSH Q1H PRN PRN Reason: Pain Last Admin: 11/24/18 02:10 Dose: 1 mg Carboprost Tromethamine (Hemabate Ds) 250 mcg IM ASDIRECTED PRN PRN Reason: Post Hemorrhage Lactated Ringer's (Ringers, Lactated) 1,000 mls @ 150 mls/hr IV ASDIRECTED LAZARO Last Admin: 11/24/18 04:16 Dose: 125 mls/hr Oxytocin/Sodium Chloride (Oxytocin 30 Unit/500 Ml-Ns) 30 unit in 500 mls @ 999 mls/hr IV TITRATE [facility] Tranexamic Acid 1,000 mg/ (Sodium Chloride) 110 mls @ 660 mls/hr IV ONETIME PRN PRN Reason: Bleeding Lidocaine HCl (Xylocaine 1%) 50 ml INJECT ONETIME PRN PRN Reason: Laceration repair Methylergonovine Maleate (Methergine) 0.2 mg IM ASDIRECTED PRN PRN Reason: Post Hemorrhage Misoprostol (Cytotec) 200 mcg PO ONETIME PRN PRN Reason: Post Hemorrhage Nalbuphine HCl (Nubain) 10 mg IVPUSH Q1H PRN PRN Reason: Pain (severe 7-10) Ondansetron HCl (Zofran) 4 mg IV Q6H PRN PRN Reason: Nausea/Vomiting Sodium Chloride (Saline Flush) 10 ml FLUSH ASDIRECTED PRN PRN Reason: Keep Vein Open Sodium Chloride (Saline Flush) 2.5 ml FLUSH ASDIRECTED PRN PRN Reason: Keep Vein Open Sodium Chloride (Normal Saline) 10 ml IV ASDIRECTED PRN PRN Reason: IV Use Sterile Water (Sterile Water For Irrigation) 1,000 ml IRR ASDIRECTED PRN PRN Reason: delivery Discontinued Medications Ropivacaine (Naropin 0.2%) Confirm Administered Dose 100 mls @ as directed .ROUTE .STK-MED ONE Stop: 11/24/18 02:53 - Problem List & Annotations (1) Vaginal delivery SNOMED Code(s): 159891876 Code(s): O80 - ENCOUNTER FOR FULL-TERM UNCOMPLICATED DELIVERY Status: Acute Current Visit: No - Problem List Review Problem List Initiated/Reviewed/Updated: Yes - My Orders Last 24 Hours: My Active Orders 11/24/18 01:42 Patient Status [ADT] Routine May Shower [RC] ASDIRECTED Notify Provider [RC] PRN Up ad Jessenia [RC] ASDIRECTED Vital Signs [RC] PER UNIT ROUTINE Butorphanol [Stadol] 1 mg IVPUSH Q1H PRN Carboprost Tromethamine [Hemabate DS] 250 mcg IM ASDIRECTED PRN Lidocaine 1% [Xylocaine 1%] 50 ml INJECT ONETIME PRN Methylergonovine [Methergine] 0.2 mg IM ASDIRECTED PRN Nalbuphine [Nubain] 10 mg IVPUSH Q1H PRN Ondansetron [Zofran] 4 mg IV Q6H PRN Sodium Chloride 0.9% [Normal Saline] 10 ml IV ASDIRECTED PRN Sodium Chloride 0.9% [Saline Flush] 10 ml FLUSH ASDIRECTED PRN Sodium Chloride 0.9% [Saline Flush] 2.5 ml FLUSH ASDIRECTED PRN Tranexamic Acid [Cyklokapron] 1,000 mg Sodium Chloride 0.9% [Normal Saline] 100 ml IV ONETIME Water For Irrigation,Sterile [Sterile Water for Irrigation] 1,000 ml IRR ASDIRECTED PRN miSOPROStol [Cytotec] 200 mcg PO ONETIME PRN Scalp Electrode [WOMSER] Per Unit Routine Peripheral IV Insertion Adult [OM.PC] Routine Resuscitation Status Routine 11/24/18 01:45 Lactated Ringers [Ringers, Lactated] 1,000 ml IV ASDIRECTED Oxytocin/0.9 % Sodium Chloride [Oxytocin 30 Unit/500 ML-NS] 30 unit in 500 ml IV TITRATE 11/24/18 05:18 PROTEIN/CREATININE RATIO,URINE [URCHEM] Routine URIC ACID, URINE Stat 11/24/18 Breakfast Clear Liquid Diet [DIET]
[2018-11-24] MEDS ORDERED: oxyCODONE 5 MG Tab PO PRN (06:35)
[2018-11-24] MEDS ORDERED: Witch Hazel Medicated Pads 40/Jar TOP PRN (06:35)
[2018-11-24] MEDS ORDERED: Lanolin 100% Cream 7 GM Tube TOP PRN (06:35)
[2018-11-24] MEDS ORDERED: Benzocaine/Menthol 20%-0.5% Spray 78 GM Cannister TOP PRN (06:35)
[2018-11-24] MEDS ORDERED: Ibuprofen 800 MG Tab PO PRN (06:35)
[2018-11-24] MEDS ORDERED: Bisacodyl 10 MG Supp RECTAL PRN (06:35)
[2018-11-24] MEDS ORDERED: Ibuprofen 400 MG Tab PO PRN (06:35)
[2018-11-24] MEDS ORDERED: Acetaminophen 500 MG Tab PO PRN (06:35)
--- NOTE | 2018-11-24 07:33 | OR ---
SURGEON: Natasha Harp M.D. DATE OF PROCEDURE: 11/24/2018 PREOPERATIVE DIAGNOSIS: 38 and 5/7 weeks' intrauterine , active spontaneous labor. POSTOPERATIVE DIAGNOSIS: 38 and 5/7 weeks' intrauterine , active spontaneous labor. PROCEDURE: Term spontaneous vaginal delivery. PRIMARY SURGEON: Natasha Harp M.D. ANESTHESIA: Epidural. ESTIMATED BLOOD LOSS: Less than 200 mL. FINDINGS: Liveborn male. scores 9 and 9, weighing 3400 g. Placenta spontaneous. Schultze intact with 3 vessels. Perineum intact. COMPLICATIONS: None known. DISPOSITION: Mother and baby are in LDR in good condition. BRIEF HISTORY: This is a 28-year-old female, she presents at 38 and 5/7 weeks' gestation with spontaneous rupture of membranes, followed with onset of labor. She presents to Labor and Delivery, 4 to 5 cm dilated. She received an epidural for pain control. She had category 1 heart tones. She progressed to complete. DESCRIPTION OF PROCEDURE: With the patient in dorsal lithotomy position, the patient pushed over 5 minute time period to a 5+ station, at which time the head was delivered spontaneously and atraumatically over the perineum with support with subsequent delivery of the infant's shoulders and body without any difficulty. The was bulb suctioned by nose and mouth, and after the cord had ceased to pulsate, it was doubly clamped and cut, and the infant was handed to the mother in the presence of nurse attending delivery. The was a liveborn male, scores 9 and 9, weighing 3400 g. Cord blood was collected for cord ABGs as well as routine cord blood sampling. Pitocin was initiated after delivery of the to assist with delivery of the placenta, which was delivered spontaneously. Schultze intact with 3 vessels. Upon inspection of the pelvis and perineum, there were no periurethral, vaginal sidewall, cervical, rectal, or perineal lacerations. EBL was less than 200 mL. There were no known complications. Final sponge, needle, and instrument counts were correct. Mother and baby are in LDR in good condition. DIANA / VERÓNICA /[id number]
[2018-11-24] MEDS: Docusate Sodium 100 MG Cap PO PRN (09:03)
[2018-11-24] MEDS: Acetaminophen 500 MG Tab PO PRN ×2 (17:47→22:32)
--- NOTE | 2018-11-25 07:16 | PCM48HPAN ---
Post Anesthesia Note - EVALUATION WITHIN 48HRS OF ANESTHETIC Vital Signs in Normal Range: Yes Patient Participated in Evaluation: Yes Respiratory Function Stable: Yes Airway Patent: Yes Cardiovascular Function Stable: Yes Hydration Status Stable: Yes Pain Control Satisfactory: Yes Nausea and Vomiting Control Satisfactory: Yes Mental Status Recovered: Yes Pulse Rate: 71 SaO2: 97 Resp Rate: 16 Blood Pressure: 128/75
[2018-11-25 07:54] VITALS: BP 129/82
--- NOTE | 2018-11-25 08:30 | PCM.PNPP ---
- General Info Date of Service: 11/25/18 Functional Status: Reports: Pain Controlled, Tolerating Diet, Ambulating, Urinating - Review of Systems General: Reports: No Symptoms HEENT: Reports: No Symptoms Pulmonary: Reports: No Symptoms Cardiovascular: Reports: No Symptoms Gastrointestinal: Reports: No Symptoms Genitourinary: Reports: No Symptoms Musculoskeletal: Reports: No Symptoms Skin: Reports: No Symptoms Neurological: Reports: No Symptoms Psychiatric: Reports: No Symptoms - Patient Data Vital Signs - Most Recent: Last Vital Signs Temp 36.4 C 11/25/18 07:20 Pulse 65 11/25/18 07:20 Resp 17 11/25/18 07:20 BP 129/82 11/25/18 07:20 Pulse Ox 97 11/25/18 07:20 Weight - Most Recent: 68.946 kg Lab Results - Last 24 Hours: Laboratory Results - last 24 hr 11/25/18 Range/Units 06:25 Hgb 10.3 L (12.0-16.0) g/dL Hct 32.0 L (36.0-46.0) % Med Orders - Current: Current Medications Acetaminophen (Tylenol Extra Strength) 500 mg PO Q4H PRN PRN Reason: Pain Acetaminophen (Tylenol Extra Strength) 1,000 mg PO Q4H PRN PRN Reason: Pain Last Admin: 11/24/18 22:32 Dose: 1,000 mg Benzocaine/Menthol (Dermoplast Pain Relief 20%-0.5% [place]) 78 gm TOP ASDIRECTED PRN PRN Reason: Perineal Comfort Measure Last Admin: 11/24/18 09:03 Dose: 1 can Bisacodyl (Dulcolax) 10 mg RECTAL ONETIME PRN PRN Reason: Constipation Docusate Sodium (Colace) 100 mg PO BID PRN PRN Reason: Constipation Last Admin: 11/24/18 09:03 Dose: 100 mg Emollient Ointment (Lansinoh Hpa) 0 gm TOP ASDIRECTED PRN PRN Reason: Sore Nipples Last Admin: 11/24/18 09:05 Dose: 1 tube Tranexamic Acid 1,000 mg/ (Sodium Chloride) 110 mls @ 660 mls/hr IV ONETIME PRN PRN Reason: Bleeding Ibuprofen (Motrin) 400 mg PO Q4H PRN PRN Reason: Pain Ibuprofen (Motrin) 800 mg PO Q6H PRN PRN Reason: Pain Last Admin: 11/25/18 04:09 Dose: 800 mg Oxycodone HCl (Oxycodone) 5 mg PO Q2H PRN PRN Reason: Pain Witch Floridalma (Tucks) 1 pad TOP ASDIRECTED PRN PRN Reason: comfort care Last Admin: 11/24/18 09:04 Dose: 1 tub Discontinued Medications Butorphanol Tartrate (Stadol) 1 mg IVPUSH Q1H PRN PRN Reason: Pain Last Admin: 11/24/18 02:10 Dose: 1 mg Carboprost Tromethamine (Hemabate Ds) 250 mcg IM ASDIRECTED PRN PRN Reason: Post Hemorrhage Lactated Ringer's (Ringers, Lactated) 1,000 mls @ 150 mls/hr IV ASDIRECTED [facility] Last Admin: 11/24/18 04:16 Dose: 125 mls/hr Oxytocin/Sodium Chloride (Oxytocin 30 Unit/500 Ml-Ns) 30 unit in 500 mls @ 999 mls/hr IV TITRATE [facility] Last Admin: 11/24/18 05:59 Dose: 999 mls/hr Tranexamic Acid 1,000 mg/ (Sodium Chloride) 110 mls @ 660 mls/hr IV ONETIME PRN PRN Reason: Bleeding Ropivacaine (Naropin 0.2%) Confirm Administered Dose 100 mls @ as directed .ROUTE .K-MED ONE Stop: 11/24/18 02:53 Last Admin: 11/25/18 00:25 Dose: Not Given Lidocaine HCl (Xylocaine 1%) 50 ml INJECT ONETIME PRN PRN Reason: Laceration repair Methylergonovine Maleate (Methergine) 0.2 mg IM ASDIRECTED PRN PRN Reason: Post Hemorrhage Misoprostol (Cytotec) 200 mcg PO ONETIME PRN PRN Reason: Post Hemorrhage Nalbuphine HCl (Nubain) 10 mg IVPUSH Q1H PRN PRN Reason: Pain (severe 7-10) Ondansetron HCl (Zofran) 4 mg IV Q6H PRN PRN Reason: Nausea/Vomiting Sodium Chloride (Saline Flush) 10 ml FLUSH ASDIRECTED PRN PRN Reason: Keep Vein Open Sodium Chloride (Saline Flush) 2.5 ml FLUSH ASDIRECTED PRN PRN Reason: Keep Vein Open Sodium Chloride (Normal Saline) 10 ml IV ASDIRECTED PRN PRN Reason: IV Use Sterile Water (Sterile Water For Irrigation) 1,000 ml IRR ASDIRECTED PRN PRN Reason: delivery - Interaction Disposition, : in Room with Family Interaction: Holding Infant Infant Feeding: Breastfed ; Nursed Well Support Person: - Recovery Exam Fundal Tone: Firm Fundal Level: 2 Fingerbreadths Below Umbilicus Fundal Placement: Midline Lochia Amount: Scant Lochia Color: Rubra/Red Perineum Description: Intact, Minimal Bruising/Swelling Episiotomy/Laceration: None Bladder Status: Voiding Urinary Elimination: Voided - Exam General: Alert, Oriented HEENT: Pupils Equal Neck: Supple Lungs: Normal Respiratory Effort GI/Abdominal Exam: Soft, Non-Tender, No Organomegaly, No Distention, No Mass Extremities: Normal Inspection, Non-Tender, No Pedal Edema Skin: Warm, Dry, Intact Neurological: No New Focal Deficit Psy/Mental Status: Alert, Normal Affect, Normal Mood - Problem List & Annotations (1) Vaginal delivery SNOMED Code(s): 062300541 Code(s): O80 - ENCOUNTER FOR FULL-TERM UNCOMPLICATED DELIVERY Status: Acute Current Visit: No - Problem List Review Problem List Initiated/Reviewed/Updated: Yes - Assessment Assessment:: PPD#1 after , stable minimal lochia with normal BP since delivery. is going well, denies pain. Would like to go home today. - Plan Plan:: Discharge isntructions reviewed, dismiss to home.
[2018-11-25] MEDS: Docusate Sodium 100 MG Cap PO PRN (09:42)
== END 2018-11-25 13:44 | disposition home or self-care (01) | DRG 560 ==
LOC: MW.OBCHECK 01:33 → MW.OB 01:34 → MW.OBCHECK 01:42 → MW.OB 01:42 → OBSVTOIN 05:58 → MW.OB 11:59
PROVIDERS: ADMIT Obstetrics & Gynecology; ATTEND Obstetrics & Gynecology
PROC: 10E0XZZ Delivery of Products of Conception, External Approach (ICD-10-PCS; principal; 2018-11-24)
DX: O13.4 Gestational [pregnancy-induced] hypertension without significant proteinuria, complicating childbirth (principal); Z3A.38 38 weeks gestation of pregnancy; Z37.0 Single live birth
CPT/HCPCS: 36415; 51702; 59025; 59409; 80053; 82570; 82803; 84156; 84560; 85014; 85018; 85027; 86850; 86900; 86901; A9270-GY; J0595; J2590; J7120

== ENCOUNTER 2020-08-28 12:00 | Emergency (ER) | payer BC ==
[2020-08-28] MEDS ORDERED: Sodium Chloride 0.9% 1,000 ML IV ONE (12:14)
--- NOTE | 2020-08-28 12:16 | PCM.EKG ---
#1 Interpretation EKG Date: 08/28/20 Time: 12:10 Rhythm: Other (sinus tach) Rate (Beats/Min): 102 ST-T: Normal
--- NOTE | 2020-08-28 12:19 | EDM.PDOC ---
ED HPI GENERAL MEDICAL PROBLEM - General Chief Complaint: General Stated Complaint: PAIN BELOW LEFT BREAST Time Seen by Provider: 08/28/20 12:01 Source of Information: Reports: Patient History Limitations: Reports: No Limitations - History of Present Illness INITIAL COMMENTS - FREE TEXT/NARRATIVE: HISTORY AND PHYSICAL: History of present illness: Patient is a 30-year-old female presents to the ED today with concern of an episode of left sided chest pain, just below her left breast but "deeper:, that occurred 2 hours prior to arrival to the emergency room and since then has had some residual shortness of breath that is worse with ambulation. Patient describes it as a "tightening" sensation of her left chest and states that it lasted about 10 to 20 minutes and then has resolved the pain but still associated shortness of breath and feeling like she cannot take a deep breath in. Patient states that she called her DATA ANALYST REPORT WRITER provider and was instructed to come to the emergency room for further evaluation. Patient states that she is 39 weeks today and is feeling baby move per usual without any change. Patient denies any abdominal cramping, vaginal bleeding, or change in vaginal discharge. Patient denies fever, chills, or cough. Denies headache, neck stiff ness, change in vision, syncope, or near syncope. Denies nausea, vomiting, abdominal pain, diarrhea, constipation, or dysuria. Has not noted any blood in urine or stool. Patient has been eating and drinking appropriately. Review of systems: As per history of present illness and below otherwise all systems reviewed and negative. Past medical history: As per history of present illness and as reviewed below otherwise noncontributory. Surgical history: As per history of present illness and as reviewed below otherwise noncontributory. Social history: See social history for further information Family history: As per history of present illness and as reviewed below otherwise noncontributo ry. Physical exam: General: Patient is alert, oriented, and in no acute distress. Patient laying comfortably on exam table. Tachycardic 105-110s on exam. Otherwise, Vitals stable and reviewed by me. HEENT: Atraumatic, normocephalic, pupils equal and reactive bilaterally, negative for conjunctival pallor or scleral icterus, mucous membranes moist, TMs normal bilaterally, throat clear, neck supple, nontender, trachea midline. No drooling or trismus noted. No meningeal signs. No hot potato voice noted. Lungs: Clear to auscultation, breath sounds equal bilaterally, chest nontender. Heart: S1S2, regular rate and rhythm without overt murmur Abdomen: Gravid, nontender. Negative for masses or hepatosplenomegaly. Negative for costovertebral tenderness. Pelvis: Stable nontender. Genitourinary: Deferred. Rectal: Deferred. Skin: Intact, warm, dry. No lesions or rashes noted. Extremities: Atraumatic, negative for cords or calf pain. Neurovascular unremarkable. Neuro: Awake, alert, oriented. Cranial nerves II through XII unremarkable. Cerebellum unremarkable. Motor and sensory unremarkable throughout. Exam nonfocal. Notes: On initial exam, patient is well-appearing, tachycardic 105-110 otherwise vitally stable. FHT at bedside 138. Will perform cardiac evaluation including ddimer for possible PE concern. Will also give 1LNS bolus and reassess tachycardia. Patient does have mild leukocytosis 13.3 which likely related without evidence of source of infection on remainder of diagnostics. Ddimer is elevated at 1.66 and CXR shows no acute findings. All diagnostics discussed with patient including the inability to r/o pulmonary embolism in the presence of elevated ddimer without CT scan of the chest. She expresses understanding. Because patient does not want a CT scan at this time, CXR 1V was offered to patient-all risks vs benefits discussed with patient and expresses understanding and would like to get the 1VCXR at this time. Upon reevaluation of patient, she remains comfortable throughout stay in the ED and HR is now 90bmp following 1LNS bolus. Upon disposition, patient changes her mind about performing an Ang CT chest as she has had more time to process the risks vs benefits, for possible PE concern and would now like to obtain this study. All risks vs benefits of CT scan, including the risk for radiation exposure to fetus, discussed with patient and expresses understanding and agreeable to performing CT scan of chest. Ang CT shows negative for pulmonary embolism or pneumonia with tiny pleural effusions bilaterally. All incidental findings today discussed with patient. Patient states that she now has having some lower abdominal cramping off and on. Patient will be discharged from the ED and transferred to labor and delivery for additional monitoring. Voices understanding and is agreeable to plan of care. Denies any further questions or concerns at this time. Diagnostics: EKG x 2, CBC, CMP, UA, ddimer, Trop, Ang CT Therapeutics: NS Prescription: None Impression: Atypical chest pain Dyspnea , 39 weeks Plan: Patient discharged and transferred to labor and delivery for additional monitoring Definitive disposition and diagnosis as appropriate pending reevaluation and review of above. - Related Data Allergies Allergy/AdvReac Type Severity Reaction Status Date / Time No Known Allergies Allergy Verified 08/28/20 12:14 Home Meds: Home Meds . [No Known Home Meds] 08/28/20 [History] Past Medical History HEENT History: Reports: None Cardiovascular History: Reports: Other (See Below) Respiratory History: Reports: None Gastrointestinal History: Reports: GERD Genitourinary History: Reports: None DATA ANALYST REPORT WRITER History: Reports: , Spontaneous Musculoskeletal History: Reports: None Neurological History: Reports: None Psychiatric History: Reports: Anxiety Endocrine/Metabolic History: Reports: None Hematologic History: Reports: None Immunologic History: Reports: None Oncologic (Cancer) History: Reports: None Dermatologic History: Reports: None - Infectious Disease History Infectious Disease History: Reports: None - Past Surgical History HEENT Surgical History: Reports: Other (See Below) Other HEENT Surgeries/Procedures: rods in jaw bilateral, removal on left side. Social & Family History - Family History Family Medical History: No Pertinent Family History - Tobacco Use Tobacco Use Status *Q: Never Tobacco User - Caffeine Use Caffeine Use: Reports: Coffee - Recreational Drug Use Recreational Drug Use: No ED ROS GENERAL - Review of Systems Review Of Systems: Comprehensive ROS is negative, except as noted in HPI. ED EXAM, GENERAL - Physical Exam Exam: See Below (see dictation) Course - Vital Signs Last Recorded V/S: Last Vital Signs Temp 97.0 F 08/28/20 12:07 Pulse 86 08/28/20 13:30 Resp 17 08/28/20 13:30 BP 117/84 08/28/20 13:30 Pulse Ox 98 08/28/20 13:30 - Orders/Labs/Meds Orders: Active Orders 24 hr Category Date Time Status Cardiac Monitoring [RC] . DIRECTED Care 08/28/20 12:14 Active EKG Documentation Completion [RC] STAT Care 08/28/20 12:14 Active EKG Documentation Completion [RC] STAT Care 08/28/20 14:04 Active Labs: Laboratory Tests 08/28/20 08/28/20 08/28/20 Range/Units 12:16 12:16 12:16 WBC 13.30 H (4.0-11.0) K/uL RBC 3.94 L (4.30-5.90) M/uL Hgb 12.4 (12.0-16.0) g/dL Hct 37.5 (36.0-46.0) % MCV 95.2 (80.0-98.0) fL MCH 31.5 (27.0-32.0) pg MCHC 33.1 (31.0-37.0) g/dL RDW Std Deviation 47.6 (28.0-62.0) fl RDW Coeff of Kellee 14 (11.0-15.0) % Plt Count 214 (150-400) K/uL MPV 10.30 (7.40-12.00) fL Neut % (Auto) 80.5 H (48.0-80.0) % Lymph % (Auto) 12.6 L (16.0-40.0) % [place] % (Auto) 6.2 (0.0-15.0) % Eos % (Auto) 0.6 (0.0-7.0) % Baso % (Auto) 0.1 (0.0-1.5) % Neut # (Auto) 10.7 H (1.4-5.7) K/uL Lymph # (Auto) 1.7 (0.6-2.4) K/uL [place] # (Auto) 0.8 (0.0-0.8) K/uL Eos # (Auto) 0.1 (0.0-0.7) K/uL Baso # (Auto) 0.0 (0.0-0.1) K/uL Nucleated RBC % 0.0 /100WBC Nucleated RBCs # 0 K/uL D-Dimer, Quantitative 1.66 H (0.0-0.50) mg/L FEU Sodium 136 (136-145) mmol/L Potassium 3.7 (3.5-5.1) mmol/L Chloride 101 (98-107) mmol/L Carbon Dioxide 22.7 (21.0-32.0) mmol/L BUN 11 (7.0-18.0) mg/dL Creatinine 0.7 (0.6-1.0) mg/dL Est Cr Clr Drug Dosing 110.01 mL/min Estimated GFR (MDRD) > 60.0 ml/min Glucose 129 H (74-106) mg/dL Calcium 8.8 (8.5-10.1) mg/dL Total Bilirubin 0.2 (0.2-1.0) mg/dL AST 10 L (15-37) IU/L ALT 14 (14-63) IU/L Alkaline Phosphatase 120 H (46-116) U/L Troponin I < 0.050 (0.000-0.056) ng/mL Total Protein 6.9 (6.4-8.2) g/dL Albumin 2.7 L (3.4-5.0) g/dL Globulin 4.2 H (2.6-4.0) g/dL Albumin/Globulin Ratio 0.6 L (0.9-1.6) Urine Color Urine Appearance Urine pH (5.0-8.0) Ur Specific [place] (1.001-1.035) Urine Protein (NEGATIVE) mg/dL Urine Glucose (UA) (NEGATIVE) mg/dL Urine Ketones (NEGATIVE) mg/dL Urine Occult Blood (NEGATIVE) Urine Nitrite (NEGATIVE) Urine Bilirubin (NEGATIVE) Urine Urobilinogen (<2.0) EU/dL Ur Leukocyte Esterase (NEGATIVE) 08/28/20 Range/Units 13:00 WBC (4.0-11.0) K/uL RBC (4.30-5.90) M/uL Hgb (12.0-16.0) g/dL Hct (36.0-46.0) % MCV (80.0-98.0) fL MCH (27.0-32.0) pg MCHC (31.0-37.0) g/dL RDW Std Deviation (28.0-62.0) fl RDW Coeff of Kellee (11.0-15.0) % Plt Count (150-400) K/uL MPV (7.40-12.00) fL Neut % (Auto) (48.0-80.0) % Lymph % (Auto) (16.0-40.0) % [place] % (Auto) (0.0-15.0) % Eos % (Auto) (0.0-7.0) % Baso % (Auto) (0.0-1.5) % Neut # (Auto) (1.4-5.7) K/uL Lymph # (Auto) (0.6-2.4) K/uL [place] # (Auto) (0.0-0.8) K/uL Eos # (Auto) (0.0-0.7) K/uL Baso # (Auto) (0.0-0.1) K/uL Nucleated RBC % /100WBC Nucleated RBCs # K/uL D-Dimer, Quantitative (0.0-0.50) mg/L FEU Sodium (136-145) mmol/L Potassium (3.5-5.1) mmol/L Chloride (98-107) mmol/L Carbon Dioxide (21.0-32.0) mmol/L BUN (7.0-18.0) mg/dL Creatinine (0.6-1.0) mg/dL Est Cr Clr Drug Dosing mL/min Estimated GFR (MDRD) ml/min Glucose (74-106) mg/dL Calcium (8.5-10.1) mg/dL Total Bilirubin (0.2-1.0) mg/dL AST (15-37) IU/L ALT (14-63) IU/L Alkaline Phosphatase (46-116) U/L Troponin I (0.000-0.056) ng/mL Total Protein (6.4-8.2) g/dL Albumin (3.4-5.0) g/dL Globulin (2.6-4.0) g/dL Albumin/Globulin Ratio (0.9-1.6) Urine Color YELLOW Urine Appearance CLEAR Urine pH 6.0 (5.0-8.0) Ur Specific [place] 1.020 (1.001-1.035) Urine Protein NEGATIVE (NEGATIVE) mg/dL Urine Glucose (UA) NEGATIVE (NEGATIVE) mg/dL Urine Ketones NEGATIVE (NEGATIVE) mg/dL Urine Occult Blood NEGATIVE (NEGATIVE) Urine Nitrite NEGATIVE (NEGATIVE) Urine Bilirubin NEGATIVE (NEGATIVE) Urine Urobilinogen 0.2 (<2.0) EU/dL Ur Leukocyte Esterase NEGATIVE (NEGATIVE) Meds: Medications Discontinued Medications Generic Name Dose Route Start Last Admin Trade Name Freq PRN Reason Stop Dose Admin Sodium Chloride 1,000 mls @ 999 mls/hr 08/28/20 12:14 08/28/20 12:20 Normal Saline IV 08/28/20 13:14 999 mls/hr BOLUS ONE Administration Iopamidol 50 ml 08/28/20 15:16 08/28/20 15:21 Iopamidol 755 Mg/Ml 500 Ml Multipack Bottle IVPUSH 08/28/20 15:17 50 ml ONETIME STA Administration Departure - Departure Time of Disposition: 16:06 Disposition: Home, Self-Care 01 Clinical Impression: Atypical chest pain Dyspnea Qualifiers: Dyspnea type: unspecified Qualified Code(s): R06.00 - Dyspnea, unspecified Qualifiers: Weeks of gestation: 39 weeks Qualified Code(s): Z3A.39 - 39 weeks gestation of - Discharge Information Referrals: Natasha Harp MD [Primary Care Provider] - Forms: ED Department Discharge Additional Instructions: The following information is given to patients seen in the emergency department who are being discharged to home. This information is to outline your options for follow-up care. We provide all patients seen in our emergency department with a follow-up referral. The need for follow-up, as well as the timing and circumstances, are variable depending upon the specifics of your emergency department visit. If you don't have a primary care physician on staff, we will provide you with a referral. We always advise you to contact your personal physician following an emergency department visit to inform them of the circumstance of the visit and for follow-up with them and/or the need for any referrals to a consulting specialist. The emergency department will also refer you to a specialist when appropriate. This referral assures that you have the opportunity for follow-up care with a specialist. All of these measure are taken in an effort to provide you with optimal care, which includes your follow-up. Under all circumstances we always encourage you to contact your private physician who remains a resource for coordinating your care. When calling for follow-up care, please make the office aware that this follow-up is from your recent emergency room visit. If for any reason you are refused follow-up, please contact the [facility] Emergency Department at and asked to speak to the emergency department charge nurse. [facility] [address] [place] [id number] [facility] [address] [place] [address] 1. Follow-up with your DATA ANALYST REPORT WRITER provider as discussed. Return to the ED as needed and as discussed. Transferred to labor and delivery Sepsis Event Note (ED) - Evaluation Sepsis Screening Result: No Definite Risk - Focused Exam Vital Signs: Vital Signs Temp Pulse Resp BP Pulse Ox 08/28/20 13:30 86 17 117/84 98 08/28/20 12:07 97.0 F 87 16 132/84 97 - My Orders Last 24 Hours: My Active Orders 08/28/20 12:14 Cardiac Monitoring [RC] . DIRECTED EKG Documentation Completion [RC] STAT 08/28/20 14:04 EKG Documentation Completion [RC] STAT - Assessment/Plan Last 24 Hours: My Active Orders 08/28/20 12:14 Cardiac Monitoring [RC] . DIRECTED EKG Documentation Completion [RC] STAT 08/28/20 14:04 EKG Documentation Completion [RC] STAT
[2020-08-28 13:00] LABS: BLOOD UREA NITROGEN,BUN 11 mg/dL (7.0-18.0); CARBON DIOXIDE,CO2 22.7 mmol/L (21.0-32.0); CHLORIDE,CL 101 mmol/L (98-107); GLUCOSE RANDOM 129 mg/dL (74-106); POTASSIUM,K 3.7 mmol/L (3.5-5.1); SODIUM,NA 136 mmol/L (136-145)
--- NOTE | 2020-08-28 14:16 | PCM.EKG ---
#2 Interpretation EKG Date: 08/28/20 Time: 14:15 Rhythm: NSR Rate (Beats/Min): 89 [place]: Normal ST-T: Normal
--- NOTE | 2020-08-28 14:39 | CR ---
INDICATION: Chest pain and shortness breath TECHNIQUE: Chest 1 view COMPARISON: None FINDINGS: Cardiovascular and mediastinum: Heart size and vasculature are normal in caliber and appearance. Lungs and pleural spaces: Lungs are clear. No sign of infiltrate or mass. No sign of pleural effusion. No pneumothorax. Bones and soft tissues: No significant findings. IMPRESSION: Negative chest. Dictated by Jefry Moyer MD @ Aug 28 2020 2:35PM Signed by Dr. Jefry Moyer @ Aug 28 2020 2:37PM
[2020-08-28] MEDS ORDERED: Iopamidol 755 MG/ML 500 ML Multipack Bottle IVPUSH STA (15:16)
--- NOTE | 2020-08-28 16:06 | CT ---
INDICATION: SOB, chest pain, tachycardia and elevated D-dimer. Rule out pulmonary embolism. TECHNIQUE: Volumetric helical scanning of the thorax was performed during infusion of 50 cc of Isovue 370 contrast material IV, timing optimized for pulmonary arterial opacification. Coronal and sagittal reconstructions were obtained. COMPARISON: Today`s chest x-ray FINDINGS: The images are of acceptable quality and demonstrate uniform vascular enhancement within the pulmonary arteries. No pulmonary arterial filling defect is identified. The heart size is normal. The lungs are low in volume but clear. The airways are clear. Tiny pleural effusions are suggested bilaterally. No mediastinal or hilar lymphadenopathy is evident. Images of the upper abdomen are unremarkable. No airway abnormality is evident. No mediastinal or hilar lymphadenopathy is demonstrated. Images of the upper abdomen are unremarkable. IMPRESSION: 1. Negative for pulmonary embolism and pneumonia. 2. Tiny pleural effusions suggested bilaterally. Please note that all CT scans at this facility use dose modulation, iterative reconstruction, and/or weight-based dosing when appropriate to reduce radiation dose to as low as reasonably achievable. Dictated by Jimenez Avilez MD @ Aug 28 2020 3:58PM Signed by Dr. Jimenez Avilez @ Aug 28 2020 4:04PM
[2020-08-28 16:18] VITALS: BP 133/80; PULSE 83
== END 2020-08-28 16:17 | disposition still patient (30) ==
LOC: MW.ED 12:00
DX: O99.891 Other specified diseases and conditions complicating pregnancy (principal); R07.89 Other chest pain; R06.00 Dyspnea, unspecified; Z3A.39 39 weeks gestation of pregnancy
CPT/HCPCS: 36415; 71045; 71275; 80053; 81003; 84484; 85025; 85379; 93005; 99285; J7030; Q9967

== ENCOUNTER 2020-08-28 16:13 | Inpatient (IN) | payer BC ==
[2020-08-28] MEDS ORDERED: Butorphanol 1 MG/ML SDV IVPUSH PRN (18:25)
[2020-08-28] MEDS ORDERED: Sodium Chloride 0.9% 10 ML SDV IV PRN (18:25)
[2020-08-28] MEDS ORDERED: Misoprostol 200 MCG Tab PO PRN (18:25)
[2020-08-28] MEDS ORDERED: Nalbuphine 10 MG/1 ML Vial IVPUSH PRN (18:25)
[2020-08-28] MEDS ORDERED: Lidocaine 1% 50 ML MDV INJECT PRN (18:25)
[2020-08-28] MEDS ORDERED: Sodium Chloride 0.9% 2.5 ML Syringe FLUSH PRN (18:25)
[2020-08-28] MEDS ORDERED: Ondansetron 4 MG/2 ML SDV IVPUSH PRN (18:25)
[2020-08-28] MEDS ORDERED: Tranexamic Acid 1,000 MG in Sodium Chloride 0.9% 100 ML IV PRN (18:25)
[2020-08-28] MEDS ORDERED: Methylergonovine 0.2 MG/1 ML Amp IM PRN (18:25)
[2020-08-28] MEDS ORDERED: Sodium Chloride 0.9% 10 ML Syringe FLUSH PRN (18:25)
[2020-08-28] MEDS ORDERED: Carboprost Tromethamine 250 MCG/1 ML Amp IM PRN (18:25)
[2020-08-28] MEDS ORDERED: Water For Irrigation,Sterile 1,000 ML Container IRR PRN (18:25)
[2020-08-28] MEDS ORDERED: Oxytocin/0.9 % Sodium Chloride 30 UNIT/500 ML BAG IV SCH (18:30)
[2020-08-28] MEDS: Lactated Ringers 1,000 ML IV SCH ×2 (19:04→19:54)
[2020-08-28] MEDS ORDERED: fentaNYL 100 MCG/2 ML SDV ONE (19:55)
[2020-08-28] MEDS ORDERED: Ropivacaine HCl/PF 100 ML ONE (19:55)
--- NOTE | 2020-08-28 20:20 | PCM.PREANE ---
Preanesthetic Assessment - Anesthesia/Transfusion/Family Hx Anesthesia History: Prior Anesthesia Without Reaction Family History of Anesthesia Reaction: No Transfusion History: No Prior Transfusion(s) - Physical Assessment NPO Status Date: 08/28/20 NPO Status Time: 12:00 Height: 1.68 m Weight: 71.668 kg ASA Class: 2 - Lab Values: Laboratory Last Values WBC 13.81 K/uL (4.0-11.0) H 08/28/20 19:00 RBC 3.86 M/uL (4.30-5.90) L 08/28/20 19:00 Hgb 12.1 g/dL (12.0-16.0) 08/28/20 19:00 Hct 36.7 % (36.0-46.0) 08/28/20 19:00 MCV 95.1 fL (80.0-98.0) 08/28/20 19:00 MCH 31.3 pg (27.0-32.0) 08/28/20 19:00 MCHC 33.0 g/dL (31.0-37.0) 08/28/20 19:00 RDW Std Deviation 47.6 fl (28.0-62.0) 08/28/20 19:00 RDW Coeff of Kellee 14 % (11.0-15.0) 08/28/20 19:00 Plt Count 209 K/uL (150-400) 08/28/20 19:00 MPV 10.40 fL (7.40-12.00) 08/28/20 19:00 Nucleated RBC % 0.0 /100WBC 08/28/20 19:00 Nucleated RBCs # 0 K/uL 08/28/20 19:00 SARS-CoV-2 RNA (JERICA) NEGATIVE (NEGATIVE) 08/28/20 18:10 - Allergies Allergies/Adverse Reactions: Allergies Allergy/AdvReac Type Severity Reaction Status Date / Time No Known Allergies Allergy Verified 08/28/20 19:55 - Acknowledgements Anesthesia Type Planned: Epidural Pt an Appropriate Candidate for the Planned Anesthesia: Yes Alternatives and Risks of Anesthesia Discussed w Pt/Guardian: Yes Pt/Guardian Understands and Agrees with Anesthesia Plan: Yes PreAnesthesia Questionnaire HEENT History: Reports: None Cardiovascular History: Reports: Other (See Below) Respiratory History: Reports: None Gastrointestinal History: Reports: GERD Genitourinary History: Reports: None RETORT FORKER History: Reports: , Spontaneous Musculoskeletal History: Reports: None Neurological History: Reports: None Psychiatric History: Reports: Anxiety Endocrine/Metabolic History: Reports: None Hematologic History: Reports: None Immunologic History: Reports: None Oncologic (Cancer) History: Reports: None Dermatologic History: Reports: None - Infectious Disease History Infectious Disease History: Reports: None - Past Surgical History HEENT Surgical History: Reports: Other (See Below) Other HEENT Surgeries/Procedures: rods in jaw bilateral, removal on left side. - HOME MEDS Home Medications: Home Meds Fish Oil/[place]k-3 Fatty Acids [Fish Oil 1,000 MG] 1 cap PO BEDTIME 08/28/20 [History] Pnv No.95/Ferrous Fum/Folic AC [ Tablet] 1 tab PO BEDTIME 08/28/20 [History] - CURRENT (IN HOUSE) MEDS Current Meds: Current Medications Butorphanol Tartrate (Butorphanol 1 Mg/Ml Sdv) 1 mg IVPUSH Q1H PRN PRN Reason: Pain Carboprost Tromethamine (Carboprost Tromethamine 250 Mcg/1 Ml Amp) 250 mcg IM ASDIRECTED PRN PRN Reason: Post Hemorrhage Lactated Ringer's (Ringers, Lactated) 1,000 mls @ 150 mls/hr IV ASDIRECTED [facility] Last Admin: 08/28/20 19:54 Dose: 999 mls/hr Documented by: Oxytocin/Sodium Chloride (Oxytocin 30 Unit/500 Ml-Ns) 30 unit in 500 mls @ 999 mls/hr IV TITRATE [facility] Tranexamic Acid 1,000 mg/ (Sodium Chloride) 110 mls @ 660 mls/hr IV ONETIME PRN PRN Reason: Bleeding Lidocaine HCl (Lidocaine 1% 50 Ml Mdv) 50 ml INJECT ONETIME PRN PRN Reason: Laceration repair Methylergonovine Maleate (Methylergonovine 0.2 Mg/1 Ml Amp) 0.2 mg IM ASDIR ECTED PRN PRN Reason: Post Hemorrhage Misoprostol (Misoprostol 200 Mcg Tab) 200 mcg PO ONETIME PRN PRN Reason: Post Hemorrhage Nalbuphine HCl (Nalbuphine 10 Mg/1 Ml Vial) 10 mg IVPUSH Q1H PRN PRN Reason: Pain (severe 7-10) Ondansetron HCl (Ondansetron 4 Mg/2 Ml Sdv) 4 mg IVPUSH Q6H PRN PRN Reason: Nausea/Vomiting Sodium Chloride (Sodium Chloride 0.9% 10 Ml Syringe) 10 ml FLUSH ASDIRECTED PRN PRN Reason: Keep Vein Open Sodium Chloride (Sodium Chloride 0.9% 2.5 Ml Syringe) 2.5 ml FLUSH ASDIRECTED PRN PRN Reason: Keep Vein Open Sodium Chloride (Sodium Chloride 0.9% 10 Ml Sdv) 10 ml IV ASDIRECTED PRN PRN Reason: IV Use Sterile Water (Water For Irrigation,Sterile 1,000 Ml Container) 1,000 ml IRR ASDIRECTED PRN PRN Reason: delivery Discontinued Medications Fentanyl (Fentanyl 100 Mcg/2 Ml Sdv) Confirm Administered Dose 100 mcg .ROUTE .STK-MED ONE Stop: 08/28/20 19:56 Ropivacaine (Naropin 0.2%) Confirm Administered Dose 100 mls @ as directed .ROUTE .STK-MED ONE Stop: 08/28/20 19:56
--- NOTE | 2020-08-28 20:24 | PCM.PRNOTE ---
- Free Text/Narrative Note: Anes Note Patient requests epidural for L&D. Sitting position, level L3-L4 midline [id number]. Sterile technique. Chloraprep scrub to lumbar area. Sterile fenestrated drape applied. Epidural space easily single attempt using YODIT technique. YODIT at 3 cm. Cath threaded 5 cm with ease. Cath secured at skin using sterile clear adhesive dressing. 2004 Test 3 cc 1.5% lido with epi negative. 2008 Load 10 cc 0.2% ropivicaine with 1 mcg cc fentanyl in slow divided doses. 2013 Pump started wtih 90 cc same solution. Rate is 8 cc hr with 6 cc q 20 min prn bolus. Iesha well. Time with patient Yvan Harman [employer]
--- NOTE | 2020-08-29 00:09 | PCM.DEL ---
L & D Note - General Info Date of Service: 08/29/20 Mother's Due Date: 09/05/20 - Delivery Note Labor: Spontaneous Delivery Outcome: Livebirth Infant Delivery Method: Spontaneous Vaginal Delivery-Single Delivery Mode: Spontaneous Presentation: Left Occiput Anterior (NANETTE) Nuchal Cord: None Prep: Other Anesthesia Type: Epidural Amniotic Fluid Description: Clear Episiotomy Type: None Laceration: None Placenta: Intact, Spontaneous Cord: 3 Vessels Estimated Blood Loss: 200 Resuscitation Needed: No : Suctioned Score 1 min: 9 Score 5 min: 9 Delivery Comments (Free Text/Narrative):: live-born male weight of 3400g - General Info Date of Service: 08/29/20 - Patient Data Weight - Most Recent: 71.668 kg Lab Results Last 24 Hours: Laboratory Results - last 24 hr 08/28/20 08/28/20 08/28/20 Range/Units 18:10 19:00 19:00 WBC 13.81 H (4.0-11.0) K/uL RBC 3.86 L (4.30-5.90) M/uL Hgb 12.1 (12.0-16.0) g/dL Hct 36.7 (36.0-46.0) % MCV 95.1 (80.0-98.0) fL MCH 31.3 (27.0-32.0) pg MCHC 33.0 (31.0-37.0) g/dL RDW Std Deviation 47.6 (28.0-62.0) fl RDW Coeff of Kellee 14 (11.0-15.0) % Plt Count 209 (150-400) K/uL MPV 10.40 (7.40-12.00) fL Nucleated RBC % 0.0 /100WBC Nucleated RBCs # 0 K/uL SARS-CoV-2 RNA (JERICA) NEGATIVE (NEGATIVE) Blood Type O POSITIVE Antibody Screen NEGATIVE Med Orders - Current: Current Medications Butorphanol Tartrate (Butorphanol 1 Mg/Ml Sdv) 1 mg IVPUSH Q1H PRN PRN Reason: Pain Carboprost Tromethamine (Carboprost Tromethamine 250 Mcg/1 Ml Amp) 250 mcg IM ASDIRECTED PRN PRN Reason: Post Hemorrhage Lactated Ringer's (Ringers, Lactated) 1,000 mls @ 150 mls/hr IV ASDIRECTED [facility] Last Admin: 08/28/20 19:54 Dose: 999 mls/hr Documented by: Oxytocin/Sodium Chloride (Oxytocin 30 Unit/500 Ml-Ns) 30 unit in 500 mls @ 999 mls/hr IV TITRATE [facility] Tranexamic Acid 1,000 mg/ (Sodium Chloride) 110 mls @ 660 mls/hr IV ONETIME PRN PRN Reason: Bleeding Lidocaine HCl (Lidocaine 1% 50 Ml Mdv) 50 ml INJECT ONETIME PRN PRN Reason: Laceration repair Methylergonovine Maleate (Methylergonovine 0.2 Mg/1 Ml Amp) 0.2 mg IM ASDIRECTED PRN PRN Reason: Post Hemorrhage Misoprostol (Misoprostol 200 Mcg Tab) 200 mcg PO ONETIME PRN PRN Reason: Post Hemorrhage Nalbuphine HCl (Nalbuphine 10 Mg/1 Ml Vial) 10 mg IVPUSH Q1H PRN PRN Reason: Pain (severe 7-10) Ondansetron HCl (Ondansetron 4 Mg/2 Ml Sdv) 4 mg IVPUSH Q6H PRN PRN Reason: Nausea/Vomiting Sodium Chloride (Sodium Chloride 0.9% 10 Ml Syringe) 10 ml FLUSH ASDIRECTED PRN PRN Reason: Keep Vein Open Sodium Chloride (Sodium Chloride 0.9% 2.5 Ml Syringe) 2.5 ml FLUSH ASDIRECTED PRN PRN Reason: Keep Vein Open Sodium Chloride (Sodium Chloride 0.9% 10 Ml Sdv) 10 ml IV ASDIRECTED PRN PRN Reason: IV Use Sterile Water (Water For Irrigation,Sterile 1,000 Ml Container) 1,000 ml IRR ASDIRECTED PRN PRN Reason: delivery Discontinued Medications Fentanyl (Fentanyl 100 Mcg/2 Ml Sdv) Confirm Administered Dose 100 mcg .ROUTE .STK-MED ONE Stop: 08/28/20 19:56 Last Admin: 08/28/20 20:46 Dose: Not Given Documented by: Ropivacaine (Naropin 0.2%) Confirm Administered Dose 100 mls @ as directed .ROUTE .STK-MED ONE Stop: 08/28/20 19:56 Last Admin: 08/28/20 20:46 Dose: Not Given Documented by: - Problem List & Annotations (1) Vaginal delivery SNOMED Code(s): 860991034 Code(s): O80 - ENCOUNTER FOR FULL-TERM UNCOMPLICATED DELIVERY Status: Acute Current Visit: No - Problem List Review Problem List Initiated/Reviewed/Updated: Yes
[2020-08-29] MEDS ORDERED: Misoprostol 200 MCG Tab PO PRN (00:19)
[2020-08-29] MEDS ORDERED: Acetaminophen 500 MG Tab PO PRN ×2 (00:19)
[2020-08-29] MEDS ORDERED: Bisacodyl 10 MG Supp RECTAL PRN (00:19)
[2020-08-29] MEDS ORDERED: Docusate Sodium 100 MG Cap PO PRN (00:19)
[2020-08-29] MEDS ORDERED: Tranexamic Acid 1,000 MG in Sodium Chloride 0.9% 100 ML IV PRN (00:19)
[2020-08-29] MEDS ORDERED: Witch Hazel Medicated Pads 40/Jar TOP PRN (00:19)
[2020-08-29] MEDS ORDERED: Ibuprofen 400 MG Tab PO PRN (00:19)
[2020-08-29] MEDS ORDERED: Benzocaine/Menthol 20%-0.5% Spray 78 GM Cannister TOP PRN (00:19)
[2020-08-29] MEDS ORDERED: Lanolin 100% Cream 7 GM Tube TOP PRN (00:19)
--- NOTE | 2020-08-29 01:00 | OR ---
SURGEON: Natasha Harp M.D. DATE OF PROCEDURE: 08/28/2020 PREOPERATIVE DIAGNOSES: A 38-6/7-week intrauterine , active spontaneous labor. POSTOPERATIVE DIAGNOSES: A 38-6/7-week intrauterine , active spontaneous labor. PROCEDURE: Term spontaneous vaginal delivery. PRIMARY SURGEON: Natasha Harp M.D. ANESTHESIA: Epidural. ESTIMATED BLOOD LOSS: Less than 300 mL. FINDINGS: Liveborn male, score 9 and 9, weighing 3400 g. Placenta spontaneous, Schultze intact with 3 vessels. Perineum intact. COMPLICATIONS: None known. DISPOSITION: Mother and baby in LDR in good condition. BRIEF HISTORY: This is a 30-year-old female, she is G3, P2. She presents at 38-6/7 weeks gestation in active spontaneous labor. Onset of labor was actually associated with some chest pain. She went to the emergency room and had a negative evaluation from a cardiopulmonary status, and they sent her to Labor and Delivery where she was found to be evi every 3 to 4 minutes even though she was comfortable. The day prior, she was 2 cm. Upon arrival in Labor and Delivery, she was 4 to 5 cm. She was admitted to Labor and Delivery, and she received an epidural. When she was 5 to 6 cm dilated, she had artificial rupture of membranes. She progressed to complete. DESCRIPTION OF PROCEDURE: With the patient in dorsal lithotomy position, under adequate epidural analgesia, the perineum and vagina were prepped with chlorhexidine and draped in usual fashion for vaginal delivery and with over one contraction, the patient pushed to a 5+ station, at which time the head was delivered spontaneously and atraumatically over the perineum with support, with subsequent delivery of the infant's shoulders and body without any difficulty. The infant was bulb suctioned by nose and mouth, and after 1 minute, the cord was doubly clamped and cut. The infant was handed to the mother in the presence of the nurse attending delivery. The was a liveborn male, score of 9 and 9, weighing 3400 g. Cord blood was collected for cord ABGs as well as routine cord blood sampling. Pitocin was initiated after delivery of the to assist with delivery of the placenta which was delivered spontaneously, Schultze intact with 3 vessels. Upon inspection of pelvis and perineum, there were no periurethral, vaginal sidewall, cervical, rectal, or perineal lacerations. EBL was less than 200 mL. There were no known complications. Mother and baby are in LDR in good condition. DIANA SANCHES /[id number]
[2020-08-29] MEDS: Ibuprofen 800 MG Tab PO PRN ×2 (08:45→20:44)
--- NOTE | 2020-08-29 09:38 | PCM.PNPP ---
- General Info Date of Service: 08/29/20 Functional Status: Reports: Pain Controlled, Tolerating Diet, Ambulating, Urinating - Review of Systems General: Reports: No Symptoms HEENT: Reports: No Symptoms Pulmonary: Reports: No Symptoms Cardiovascular: Reports: No Symptoms Gastrointestinal: Reports: No Symptoms Genitourinary: Reports: No Symptoms Musculoskeletal: Reports: No Symptoms Skin: Reports: No Symptoms Neurological: Reports: No Symptoms Psychiatric: Reports: No Symptoms - General Info Date of Service: 08/29/20 - Patient Data Weight - Most Recent: 71.668 kg Lab Results - Last 24 Hours: Laboratory Results - last 24 hr 08/28/20 08/28/20 08/28/20 Range/Units 18:10 19:00 19:00 WBC 13.81 H (4.0-11.0) K/uL RBC 3.86 L (4.30-5.90) M/uL Hgb 12.1 (12.0-16.0) g/dL Hct 36.7 (36.0-46.0) % MCV 95.1 (80.0-98.0) fL MCH 31.3 (27.0-32.0) pg MCHC 33.0 (31.0-37.0) g/dL RDW Std Deviation 47.6 (28.0-62.0) fl RDW Coeff of Kellee 14 (11.0-15.0) % Plt Count 209 (150-400) K/uL MPV 10.40 (7.40-12.00) fL Nucleated RBC % 0.0 /100WBC Nucleated RBCs # 0 K/uL Cord ABG pH (7.18-7.38) Cord ABG Base Excess (-10--2) Cord VBG pH (7.25-7.45) Cord VBG Base Excess (-10--2) SARS-CoV-2 RNA (JERICA) NEGATIVE (NEGATIVE) Blood Type O POSITIVE Antibody Screen NEGATIVE 08/28/20 Range/Units 23:45 WBC (4.0-11.0) K/uL RBC (4.30-5.90) M/uL Hgb (12.0-16.0) g/dL Hct (36.0-46.0) % MCV (80.0-98.0) fL MCH (27.0-32.0) pg MCHC (31.0-37.0) g/dL RDW Std Deviation (28.0-62.0) fl RDW Coeff of Kellee (11.0-15.0) % Plt Count (150-400) K/uL MPV (7.40-12.00) fL Nucleated RBC % /100WBC Nucleated RBCs # K/uL Cord ABG pH 7.268 (7.18-7.38) Cord ABG Base Excess -3 (-10--2) Cord VBG pH 7.307 (7.25-7.45) Cord VBG Base Excess -4 (-10--2) SARS-CoV-2 RNA (JERICA) (NEGATIVE) Blood Type Antibody Screen Med Orders - Current: Current Medications Acetaminophen (Acetaminophen 500 Mg Tab) 500 mg PO Q4H PRN PRN Reason: Pain Acetaminophen (Acetaminophen 500 Mg Tab) 1,000 mg PO Q4H PRN PRN Reason: Pain Benzocaine/Menthol (Benzocaine/Menthol 20%-0.5% Lynwood 78 Gm Cannister) 78 gm TOP ASDIRECTED PRN PRN Reason: Perineal Comfort Measure Bisacodyl (Bisacodyl 10 Mg Supp) 10 mg RECTAL ONETIME PRN PRN Reason: Constipation Docusate Sodium (Docusate Sodium 100 Mg Cap) 100 mg PO BID PRN PRN Reason: Constipation Last Admin: 08/29/20 08:45 Dose: 100 mg Documented by: Emollient Ointment (Lanolin 100% Cream 7 Gm Tube) 0 gm TOP ASDIRECTED PRN PRN Reason: Sore Nipples Tranexamic Acid 1,000 mg/ (Sodium Chloride) 110 mls @ 660 mls/hr IV ONETIME PRN PRN Reason: Bleeding Ibuprofen (Ibuprofen 400 Mg Tab) 400 mg PO Q4H PRN PRN Reason: Pain Ibuprofen (Ibuprofen 800 Mg Tab) 800 mg PO Q6H PRN PRN Reason: Pain Last Admin: 08/29/20 08:45 Dose: 800 mg Documented by: Misoprostol (Misoprostol 200 Mcg Tab) 400 mcg PO ONETIME PRN PRN Reason: excessive vaginal bleeding Witch Floridalma (Witch Floridalma Medicated Pads 40/Jar) 1 pad TOP ASDIRECTED PRN PRN Reason: comfort care Discontinued Medications Butorphanol Tartrate (Butorphanol 1 Mg/Ml Sdv) 1 mg IVPUSH Q1H PRN PRN Reason: Pain Stop: 08/29/20 00:17 Carboprost Tromethamine (Carboprost Tromethamine 250 Mcg/1 Ml Amp) 250 mcg IM ASDIRECTED PRN PRN Reason: Post Hemorrhage Fentanyl (Fentanyl 100 Mcg/2 Ml Sdv) Confirm Administered Dose 100 mcg .ROUTE .[facility] ONE Stop: 08/28/20 19:56 Last Admin: 08/28/20 20:46 Dose: Not Given Documented by: Lactated Ringer's (Ringers, Lactated) 1,000 mls @ 150 mls/hr IV ASDIRECTED [facility] Last Admin: 08/28/20 19:54 Dose: 999 mls/hr Documented by: Oxytocin/Sodium Chloride (Oxytocin 30 Unit/500 Ml-) 30 unit in 500 mls @ 999 mls/hr IV TITRATE [facility] Last Admin: 08/28/20 23:46 Dose: 999 mls/hr Documented by: Tranexamic Acid 1,000 mg/ (Sodium Chloride) 110 mls @ 660 mls/hr IV ONETIME PRN PRN Reason: Bleeding Ropivacaine (Naropin 0.2%) Confirm Administered Dose 100 mls @ as directed .ROUTE .[employer] ONE Stop: 08/28/20 19:56 Last Admin: 08/28/20 20:46 Dose: Not Given Documented by: Lidocaine HCl (Lidocaine 1% 50 Ml Mdv) 50 ml INJECT ONETIME PRN PRN Reason: Laceration repair Methylergonovine Maleate (Methylergonovine 0.2 Mg/1 Ml Amp) 0.2 mg IM ASDIRECTED PRN PRN Reason: Post Hemorrhage Misoprostol (Misoprostol 200 Mcg Tab) 200 mcg PO ONETIME PRN PRN Reason: Post Hemorrhage Nalbuphine HCl (Nalbuphine 10 Mg/1 Ml Vial) 10 mg IVPUSH Q1H PRN PRN Reason: Pain (severe 7-10) Ondansetron HCl (Ondansetron 4 Mg/2 Ml Sdv) 4 mg IVPUSH Q6H PRN PRN Reason: Nausea/Vomiting Sodium Chloride (Sodium Chloride 0.9% 10 Ml Syringe) 10 ml FLUSH ASDIRECTED PRN PRN Reason: Keep Vein Open Sodium Chloride (Sodium Chloride 0.9% 2.5 Ml Syringe) 2.5 ml FLUSH ASDIRECTED PRN PRN Reason: Keep Vein Open Sodium Chloride (Sodium Chloride 0.9% 10 Ml Sdv) 10 ml IV ASDIRECTED PRN PRN Reason: IV Use Sterile Water (Water For Irrigation,Sterile 1,000 Ml Container) 1,000 ml IRR ASDIRECTED PRN PRN Reason: delivery - Interaction Disposition, : [place] in Room with Family Interaction: Holding Feeding: Breastfed ; Nursed Well Support Person: - Recovery Exam Fundal Level: 3 Fingerbreadths Above Umbilicus Fundal Placement: Midline Lochia Amount: Small Lochia Color: Rubra/Red Episiotomy/Laceration: None - Exam General: Alert, Oriented HEENT: Pupils Equal Neck: Supple Lungs: Normal Respiratory Effort Cardiovascular: Regular Rate GI/Abdominal Exam: Soft, Non-Tender, No Organomegaly, No Distention, No Mass Extremities: Normal Inspection, Non-Tender, No Pedal Edema, Normal Capillary Refill Skin: Warm, Dry, Intact Neurological: No New Focal Deficit Psy/Mental Status: Alert, Normal Affect, Normal Mood - Problem List & Annotations (1) Vaginal delivery SNOMED Code(s): 611195326 Code(s): O80 - ENCOUNTER FOR FULL-TERM UNCOMPLICATED DELIVERY Status: Acute Current Visit: No - Problem List Review Problem List Initiated/Reviewed/Updated: Yes - My Orders Last 24 Hours: My Active Orders 08/28/20 19:00 RPR (SYPHILIS SERO) W/ RFLX [REF] Routine 08/29/20 00:19 Patient Status [ADT] Routine May Shower [RC] ASDIRECTED Up ad Jessenia [RC] ASDIRECTED Vital Signs [RC] PER UNIT ROUTINE Acetaminophen [Tylenol Extra Strength] 1,000 mg PO Q4H PRN Acetaminophen [Tylenol Extra Strength] 500 mg PO Q4H PRN Benzocaine/Menthol [Dermoplast Pain Relief 20%-0.5% [place]] 78 gm TOP ASDIR ECTED PRN Docusate Sodium [Colace] 100 mg PO BID PRN Ibuprofen [Motrin] 400 mg PO Q4H PRN Ibuprofen [Motrin] 800 mg PO Q6H PRN Lanolin [Lansinoh HPA] See Dose Instructions TOP ASDIRECTED PRN Tranexamic Acid [Cyklokapron] 1,000 mg Sodium Chloride 0.9% [Normal Saline] 100 ml IV ONETIME bisacodyL [Dulcolax] 10 mg RECTAL ONETIME PRN miSOPROStoL [Cytotec] 400 mcg PO ONETIME PRN witch Floridalma [Tucks] 1 pad TOP ASDIRECTED PRN Assess Lochia [WOMSER] Per Unit Routine Assess Uterine Involution [WOMSER] Per Unit Routine Peripheral IV Discontinue [OM.PC] Routine Resuscitation Status Routine 08/29/20 00:22 Perineal Care [OM.PC] Per Unit Routine 08/29/20 Breakfast Regular Diet [DIET] 08/30/20 05:11 HEMOGLOBIN/HEMATOCRIT,HH [HEME] Timed - Assessment Assessment:: PPD#1 after , stable, minimal lochia. is going well. Would like to go home at 24 hours if possible. - Plan Plan:: Discharge instructions reviewed.
[2020-08-30 09:46] VITALS: BP 125/71; PULSE 82
== END 2020-08-30 08:00 | disposition home or self-care (01) | DRG 560 ==
LOC: MW.OBCHECK 16:13 → MW.OB 16:13 → INTOOBSV 18:26 → MW.OBCHECK 18:26 → MW.OB 18:26 → OBSVTOIN 23:45 → MW.OB 08-29 03:31
PROVIDERS: ADMIT Obstetrics & Gynecology; ATTEND Obstetrics & Gynecology
PROC: 10E0XZZ Delivery of Products of Conception, External Approach (ICD-10-PCS; principal; 2020-08-28)
PROC: 10907ZC Drainage of Amniotic Fluid, Therapeutic from Products of Conception, Via Natural or Artificial Opening (ICD-10-PCS; 2020-08-28)
PROC: 3E0R3BZ Introduction of Anesthetic Agent into Spinal Canal, Percutaneous Approach (ICD-10-PCS; 2020-08-28)
PROC: 00HU33Z Insertion of Infusion Device into Spinal Canal, Percutaneous Approach (ICD-10-PCS; 2020-08-28)
DX: O34.03 Maternal care for unspecified congenital malformation of uterus, third trimester (principal); Z37.0 Single live birth; Z3A.38 38 weeks gestation of pregnancy; Z20.822 Contact with and (suspected) exposure to COVID-19; Q51.28 Other and unspecified doubling of uterus; O99.344 Other mental disorders complicating childbirth; F41.9 Anxiety disorder, unspecified
CPT/HCPCS: 01967; 36415; 51702; 59025; 59409; 82803; 85014; 85018; 85027; 86592; 86850; 86900; 86901; A9270-GY; J2590; J7120; U0002

== ENCOUNTER 2022-07-31 22:49 | Emergency (ER) | payer BC ==
[2022-07-31 23:55] LABS: CARBON DIOXIDE,CO2 23.7 mmol/L (21.0-32.0); POTASSIUM,K 3.8 mmol/L (3.5-5.1)
[2022-08-01 02:04] VITALS: BP 119/84; PULSE 68
== END 2022-08-01 02:05 | disposition home or self-care (01) ==
LOC: MW.ED 22:49
DX: R07.9 Chest pain, unspecified (principal)
CPT/HCPCS: 36415; 71045; 71045-26; 80053; 84484; 84703; 85025; 85379; 93005; 99285

== ENCOUNTER 2023-04-09 00:39 | Emergency (ER) | payer BC ==
[2023-04-09 01:01] LABS: BASOPHILS ABSOLUTE AUTO 0.04 K/uL (0.00-0.20); BASOPHILS PERCENT AUTO 0.5 % (0.0-1.0); EOSINOPHILS ABSOLUTE AUTO 0.12 K/uL (0.00-0.45); EOSINOPHILS PERCENT AUTO 1.5 % (0.0-6.0); HEMATOCRIT 36.5 % (37.0-47.0); HEMOGLOBIN 12.9 g/dL (12.0-16.0); IMMATURE GRAN ABSOLUTE AUTO 0.02 K/uL (0.00-0.05); IMMATURE GRAN PERCENT AUTO 0.2 % (0.0-0.4); LYMPHOCYTES ABSOLUTE AUTO 2.62 K/uL (1.00-4.80); MEAN CORPUSCULAR HEMOGLOBIN 31.3 pg (28.0-32.0); MEAN CORPUSCULAR HGB CONC 35.3 g/dL (32.0-36.0); MEAN CORPUSCULAR VOLUME 88.6 fL (83.0-99.0); MEAN PLATELET VOLUME 9.2 fL (9.4-12.3); MONOCYTES ABSOLUTE AUTO 0.73 K/uL (0.00-0.80); MONOCYTES PERCENT AUTO 8.9 % (0.0-8.0); NEUTROPHILS ABSOLUTE AUTO 4.67 K/uL (1.80-7.70); NEUTROPHILS PERCENT AUTO 56.9 % (41.0-71.0); PLATELET COUNT,PLT 295 K/uL (150-400); RED BLOOD CELL COUNT 4.12 M/uL (4.10-5.30)
[2023-04-09 01:22] LABS: A/G RATIO 1.2 (0.9-1.6); BILIRUBIN TOTAL 0.4 mg/dL (0.2-1.0); CALCIUM 9.1 mg/dL (8.5-10.1); CARBON DIOXIDE,CO2 26.3 mmol/L (21.0-32.0); CREATININE 0.8 mg/dL (0.6-1.0); EST CRCL DRUG DOSING (CG) 89.53 mL/min; POTASSIUM,K 3.6 mmol/L (3.5-5.1); PROTEIN TOTAL,TP 7.3 g/dL (6.4-8.2)
[2023-04-09] MEDS ORDERED: Iopamidol 755 MG/ML 500 ML Multipack Bottle IVPUSH ONE (01:48)
[2023-04-09 03:13] VITALS: BP 114/78; PULSE 66
== END 2023-04-09 03:11 | disposition home or self-care (01) ==
LOC: MW.ED 00:39
DX: R07.9 Chest pain, unspecified (principal); R42 Dizziness and giddiness
CPT/HCPCS: 36415; 70450; 70496; 70498; 71046; 80053; 84484; 85025; 93005; 99285; Q9967; 93010; 99284

== ENCOUNTER 2023-05-07 04:14 | Emergency (ER) | payer BC ==
[2023-05-07] MEDS ORDERED: Sodium Chloride 0.9% 2.5 ML Syringe FLUSH PRN (04:28)
[2023-05-07] MEDS ORDERED: Sodium Chloride 0.9% 10 ML Syringe FLUSH PRN (04:28)
[2023-05-07 04:41] LABS: BASOPHILS ABSOLUTE AUTO 0.04 K/uL (0.00-0.20); BASOPHILS PERCENT AUTO 0.4 % (0.0-1.0); EOSINOPHILS ABSOLUTE AUTO 0.11 K/uL (0.00-0.45); EOSINOPHILS PERCENT AUTO 1.2 % (0.0-6.0); HEMATOCRIT 38.1 % (37.0-47.0); HEMOGLOBIN 13.6 g/dL (12.0-16.0); IMMATURE GRAN ABSOLUTE AUTO 0.02 K/uL (0.00-0.05); IMMATURE GRAN PERCENT AUTO 0.2 % (0.0-0.4); LYMPHOCYTES ABSOLUTE AUTO 2.68 K/uL (1.00-4.80); LYMPHOCYTES PERCENT AUTO 29.2 % (24.0-44.0); MEAN CORPUSCULAR HEMOGLOBIN 31.6 pg (28.0-32.0); MEAN CORPUSCULAR HGB CONC 35.7 g/dL (32.0-36.0); MEAN CORPUSCULAR VOLUME 88.4 fL (83.0-99.0); MEAN PLATELET VOLUME 9.3 fL (9.4-12.3); MONOCYTES ABSOLUTE AUTO 0.66 K/uL (0.00-0.80); MONOCYTES PERCENT AUTO 7.2 % (0.0-8.0); NEUTROPHILS ABSOLUTE AUTO 5.68 K/uL (1.80-7.70); NEUTROPHILS PERCENT AUTO 61.8 % (41.0-71.0); PLATELET COUNT,PLT 274 K/uL (150-400); RED BLOOD CELL COUNT 4.31 M/uL (4.10-5.30); WHITE BLOOD CELL COUNT,WBC 9.19 K/uL (3.9-11.3)
[2023-05-07 05:08] LABS: BILIRUBIN,URINE NEGATIVE (NEGATIVE); COLOR,URINE YELLOW; GLUCOSE,URINE NEGATIVE (NEGATIVE); KETONES,URINE NEGATIVE (NEGATIVE); LEUKOCYTE ESTERASE,URINE TRACE (NEGATIVE); NITRITE,URINE NEGATIVE (NEGATIVE); OCCULT BLOOD,URINE NEGATIVE (NEGATIVE); PH,URINE 6.5 (5.0-8.0); PROTEIN,URINE NEGATIVE (NEGATIVE); UROBILINOGEN,URINE 0.2 EU/dL (<2.0)
[2023-05-07 05:13] LABS: APPEARANCE,URINE HAZY
[2023-05-07 05:13] LABS: A/G RATIO 1.4 (0.9-1.6); ALBUMIN 4.5 g/dL (3.4-5.0); BILIRUBIN TOTAL 0.4 mg/dL (0.2-1.0); CALCIUM 9.5 mg/dL (8.5-10.1); CARBON DIOXIDE,CO2 27.3 mmol/L (21.0-32.0); CREATININE 0.9 mg/dL (0.6-1.0); EST CRCL DRUG DOSING (CG) 83.23 mL/min; POTASSIUM,K 3.4 mmol/L (3.5-5.1); PROTEIN TOTAL,TP 7.7 g/dL (6.4-8.2)
[2023-05-07 05:34] LABS: BACTERIA,URINE FEW (NEGATIVE); EPITHELIAL CELLS,URINE MODERATE (NONE-FEW); RBC,URINE 0-2 (0-2/HPF); WBC,URINE 0-5 (0-5/HPF)
[2023-05-07 06:10] LABS: CANDIDA DNA PROBE NEGATIVE (NEGATIVE); GARDNERELLA DNA PROBE NEGATIVE (NEGATIVE); TRICHOMONAS DNA PROBE NEGATIVE (NEGATIVE)
[2023-05-07 06:54] LABS: C. TRACHOMATIS BY PCR NOT DETECTED; N. GONORRHOEAE BY PCR NOT DETECTED
[2023-05-07 07:48] VITALS: BP 131/80; PULSE 72
== END 2023-05-07 07:48 | disposition home or self-care (01) ==
LOC: MW.ED 04:14
DX: R10.9 Unspecified abdominal pain (principal)
CPT/HCPCS: 36415; 71045; 76830; 80053; 81001; 81025; 83690; 84484; 85025; 87480; 87491; 87510; 87591; 87660; 93005; 99285; J3490; 93010; 99282

== ENCOUNTER 2023-05-22 08:27 | Day surgery (SDC) | payer BC ==
[~2023-05-22 08:27] MED LIST: Lactated Ringers 1,000 ML IV SCH
[2023-05-22] MEDS ORDERED: Lidocaine 2% 5 ML SDV ONE (09:16)
[2023-05-22] MEDS ORDERED: Ondansetron 4 MG/2 ML SDV ONE (09:16)
[2023-05-22] MEDS ORDERED: Propofol 200 MG/20 ML SDV ONE (09:16)
[2023-05-22] MEDS ORDERED: Glycopyrrolate 0.2 MG/ML SDV ONE (09:17)
[2023-05-22] MEDS ORDERED: Metoclopramide 10 MG/2 ML SDV ONE (10:14)
[2023-05-22] MEDS ORDERED: Lactated Ringers 1,000 ML IV SCH (10:30)
[2023-05-22 10:54] VITALS: BP 119/83; PULSE 97
== END 2023-05-22 11:25 | disposition home or self-care (01) ==
LOC: MW.SDS 08:27
PROVIDERS: ATTEND Surgery
DX: K29.50 Unspecified chronic gastritis without bleeding (principal); K31.89 Other diseases of stomach and duodenum; K21.00 Gastro-esophageal reflux disease with esophagitis, without bleeding; F41.9 Anxiety disorder, unspecified; Z79.899 Other long term (current) drug therapy
CPT/HCPCS: 43239; 81025; J2405; J2704; J2765; J3490; J7120

== ENCOUNTER 2024-04-12 11:07 | Day surgery (SDC) | payer BC ==
[~2024-04-12 11:07] MED LIST changes: -Lactated Ringers 1,000 ML IV SCH; +Sodium Chloride 0.9% 10 ML Syringe FLUSH PRN; +Sodium Chloride 0.9% 2.5 ML Syringe FLUSH PRN; +Sodium Chloride 0.9% 20 ML SDV IV PRN
[2024-04-12] MEDS: Lactated Ringers 1,000 ML IV SCH (12:35)
[2024-04-12] MEDS ORDERED: propofoL 50 ML ONE (13:11)
[2024-04-12] MEDS ORDERED: dexmedeTOMIDine HCl 200 MCG/2 ML SDV ONE (13:40)
[2024-04-12] MEDS ORDERED: Propofol 200 MG/20 ML SDV ONE (13:44)
[2024-04-12 15:15] VITALS: BP 124/76; PULSE 56
== END 2024-04-12 14:40 | disposition home or self-care (01) ==
LOC: MW.SDS 11:07
PROVIDERS: ATTEND Surgery
DX: K31.84 Gastroparesis (principal); K59.09 Other constipation; F41.9 Anxiety disorder, unspecified; J45.909 Unspecified asthma, uncomplicated; Z79.899 Other long term (current) drug therapy
CPT/HCPCS: 43239; 45380; 81025; J2704; J7120; 00813; J3490